=== PATIENT | male | born 1940 | race Caucasian/White ===

== ENCOUNTER 2017-11-20 14:17 | Emergency (ER) | payer MEDICARE, OTHER ==
[2017-11-20 14:34] VITALS: BP 152/65
--- NOTE | 2017-11-20 16:34 | EDM.PDOC ---
ED HPI GENERAL MEDICAL PROBLEM - General Chief Complaint: Lower Extremity Injury/Pain Stated Complaint: LT LEG TURNING COLOR AFTER SURGERY/HURTS Time Seen by Provider: 11/20/17 14:57 Source of Information: Reports: Patient History Limitations: Reports: No Limitations - History of Present Illness INITIAL COMMENTS - FREE TEXT/NARRATIVE: Patient presents today with concerns of swelling and discoloration in his left leg. Patient had a fem pop bypass graft done a month ago with Dr. Capone. Has had issues with wound healing but was recovering well. He had significant left leg pain prior to surgery to the point he was in a wheelchair. He admits that pain is gone, now only has an ache in his leg. He noted discoloration in his leg that would actually worsen when is sitting with his knee flexed. relates that the swelling only was noted today. No shortness of breath or chest pain. Onset: Today, Sudden Duration: Hour(s): Location: Reports: Lower Extremity, Left Quality: Reports: Ache Severity: Mild Improves with: Reports: None Worsens with: Reports: None Context: Reports: Other (recent surgery) Left Leg Pain Score (Numeric/FACES): 3 - Related Data Allergies Allergy/AdvReac Type Severity Reaction Status Date / Time No Known Allergies Allergy Verified 11/20/17 14:34 Home Meds: Home Meds Carvedilol [Coreg] 6.25 mg PO BID 06/26/14 [History] Clopidogrel [Plavix] 75 mg PO DAILY 06/26/14 [History] Sertraline [Zoloft] 50 mg PO DAILY 06/26/14 [History] Simvastatin [Zocor] 40 mg PO DAILY 06/26/14 [History] amLODIPine [Norvasc] 10 mg PO DAILY 06/26/14 [History] metFORMIN [Glucophage] 500 mg PO BID 06/26/14 [History] Apixaban [Eliquis] 5 mg PO BID #70 tablet 11/20/17 [Rx] Ascorbic Acid [Vitamin C] 1,000 mg PO DAILY 11/20/17 [History] Aspirin [Halfprin] 81 mg PO DAILY 11/20/17 [History] Cholecalciferol (Vitamin D3) [Vitamin D3] 6,000 unit PO DAILY 11/20/17 [History] Flaxseed Oil/[place] 3,6,9 [Sv Flaxseed Oil 1,300 mg Sftgl] 1 each PO DAILY [History] Gabapentin [Neurontin] 100 mg PO BID 11/20/17 [History] Multivitamin [Multivitamins] 1 each PO DAILY 11/20/17 [History] Nitroglycerin 0.4 mg SL ASDIRECTED PRN 11/20/17 [History] [place]-3/DHA/Epa/Fish Oil [[place]-3 Fish Oil 1,000 MG Sfgl] 1,000 mg PO BID [History] Past Medical History Cardiovascular History: Reports: Angina, High Cholesterol, Hypertension, CT, Pacemaker, Stents Musculoskeletal History: Reports: Back Pain, Chronic Psychiatric History: Reports: Depression Endocrine/Metabolic History: Reports: Diabetes, Type II - Past Surgical History Cardiovascular Surgical History: Reports: Carotid Stents, Pacer, Other (See Below) Other Cardiovascular Surgeries/Procedures: bypass surgery left leg on 10-14-17 Endocrine Surgical History: Reports: None Musculoskeletal Surgical History: Reports: Hip Replacement, Other (See Below) Other Musculoskeletal Surgeries/Procedures:: laminectomy Social & Family History - Tobacco Use Smoking Status *Q: Current Every Day Smoker Years of Tobacco use: 60 Packs/Tins Daily: 1 Review of Systems - Review of Systems Review Of Systems: See Below Constitutional: Denies: Fever, Weakness Eyes: Reports: No Symptoms Ears: Reports: No Symptoms Nose: Reports: No Symptoms Mouth/Throat: Reports: No Symptoms Respiratory: Denies: Shortness of Breath, Cough Cardiovascular: Denies: Chest Pain, Palpitations, Syncope GI/Abdominal: Reports: No Symptoms Musculoskeletal: Reports: Leg Pain Skin: Reports: Other (incision healing in groin) Neurological: Reports: No Symptoms ED EXAM, GENERAL - Physical Exam Exam: See Below Exam Limited By: No Limitations General Appearance: Alert, WD/WN, No Apparent Distress Neck: Normal Inspection Respiratory/Chest: No Respiratory Distress, Lungs Clear, Normal Breath Sounds Cardiovascular: Regular Rate, Rhythm Extremities: Other (LLE is noted to have 2+ edema, slightly red in appearance. Pedal pulse 2+ to LLE, 3+ RLE. ) Neurological: Alert, Oriented Skin Exam: Warm, Dry Course - Vital Signs Last Recorded V/S: Last Vital Signs Temp 97.4 F 11/20/17 14:31 Pulse 74 11/20/17 14:31 Resp 16 11/20/17 14:31 BP 152/65 H 11/20/17 14:31 Pulse Ox 97 11/20/17 14:31 - Orders/Labs/Meds Orders: Active Orders 24 hr Category Date Time Status VL Duplex Lwr Ext Veins Ltd Lt [US] Stat Exams 11/20/17 15:28 Taken Labs: Laboratory Tests 11/20/17 Range/Units 14:48 D-Dimer, Quantitative 10.33 H (0.00-0.50) - Re-Assessments/Exams Free Text/Narrative Re-Assessment/Exam: 11/20/17 Patient d-dimer greater than 10. Will obtain ultrasound of leg 1630 Ultrasound of leg is positive. Contacted Dr. Capone, his surgeon at [facility] , and discussed status with him. Advised to start Eliquis and that could coincide this with his Plavix. He is scheduled for recheck appointment in [address] Capone. Patient and informed and verbalizes understanding. Departure - Departure Time of Disposition: 16:37 Disposition: Home, Self-Care 01 Condition: Fair Clinical Impression: DVT (deep venous thrombosis) - Discharge Information *PRESCRIPTION DRUG MONITORING PROGRAM REVIEWED*: No *COPY OF PRESCRIPTION DRUG MONITORING REPORT IN PATIENT KALIA: No Prescriptions: Apixaban [Eliquis] 5 mg PO BID #70 tablet Referrals: Zain Maradiaga MD [Primary Care Provider] - Forms: ED Department Discharge Additional Instructions: 1. Rest 2. Elevate leg 3. Hiro hose to leg 4. Start Eliquis today 5. See Dr. Capone in 3 weeks as previously scheduled. - My Orders Last 24 Hours: My Active Orders 11/20/17 15:28 VL Duplex Lwr Ext Veins Ltd Lt [US] Stat - Assessment/Plan Last 24 Hours: My Active Orders 11/20/17 15:28 VL Duplex Lwr Ext Veins Ltd Lt [US] Stat
== END 2017-11-20 16:45 | disposition home or self-care (01) ==
LOC: CC.ED 14:17
DX: I82.402 Acute embolism and thrombosis of unspecified deep veins of left lower extremity (principal); E78.00 Pure hypercholesterolemia, unspecified; I10 Essential (primary) hypertension; F17.210 Nicotine dependence, cigarettes, uncomplicated; I25.2 Old myocardial infarction; F32.9 Major depressive disorder, single episode, unspecified; Z79.01 Long term (current) use of anticoagulants; Z79.899 Other long term (current) drug therapy; Z95.0 Presence of cardiac pacemaker; Z79.82 Long term (current) use of aspirin
CPT/HCPCS: 36415; 85379; 93971-LT; 99283

== ENCOUNTER 2018-06-20 01:24 | Observation (INO) | payer MEDICARE, OTHER ==
[2018-06-20] MEDS ORDERED: Nitroglycerin 0.4 MG Tab.SL SL PRN (01:54)
[2018-06-20] MEDS ORDERED: Aspirin 81 MG Tab.Chew PO ONE (01:54)
[2018-06-20 02:00] LABS: CHLORIDE,CL 106 mEq/L (98-106); SODIUM,NA 142 mEq/L (136-145)
--- NOTE | 2018-06-20 02:00 | EDM.PDOC ---
ED HPI GENERAL MEDICAL PROBLEM - General Chief Complaint: General Stated Complaint: chest pain Time Seen by Provider: 06/20/18 01:48 Source of Information: Reports: Patient - History of Present Illness INITIAL COMMENTS - FREE TEXT/NARRATIVE: patient is a 78 year old male who presents with left sided chest pain that he states he has chest pain all the time but this evening it was worse as he was up walking around the house. He states it is 6/10 and is heavy non radiating. Onset: Gradual Duration: Day(s):, Getting Worse Location: Reports: Chest Quality: Reports: Pressure Severity: Moderate Improves with: Reports: Movement Worsens with: Reports: Rest Associated Symptoms: Reports: No Other Symptoms Left Middle Chest Pain Score (Numeric/FACES): 4 - Related Data Allergies Allergy/AdvReac Type Severity Reaction Status Date / Time No Known Allergies Allergy Verified 06/20/18 02:44 Home Meds: Home Meds Carvedilol [Coreg] 6.25 mg PO BID 06/26/14 [History] Clopidogrel [Plavix] 75 mg PO DAILY 06/26/14 [History] Sertraline [Zoloft] 50 mg PO DAILY 06/26/14 [History] Simvastatin [Zocor] 20 mg PO DAILY 06/26/14 [History] amLODIPine [Norvasc] 10 mg PO DAILY 06/26/14 [History] metFORMIN [Glucophage] 500 mg PO BID 06/26/14 [History] Cholecalciferol (Vitamin D3) [Vitamin D3] 5,000 unit PO DAILY 11/20/17 [History] Flaxseed Oil/[place] 3,6,9 [Sv Flaxseed Oil 1,300 mg Sftgl] 1 each PO DAILY [History] Gabapentin [Neurontin] 100 mg PO TID 11/20/17 [History] Multivitamin [Multivitamins] 1 each PO DAILY 11/20/17 [History] Nitroglycerin 0.4 mg SL ASDIRECTED PRN 11/20/17 [History] [place]-3/DHA/Epa/Fish Oil [[place]-3 Fish Oil 1,000 MG Sfgl] 1,000 mg PO BID [History] Warfarin [Coumadin] 5 mg PO DAILY 06/20/18 [History] Past Medical History Cardiovascular History: Reports: Angina, High Cholesterol, Hypertension, [place], Pacemaker, Stents Musculoskeletal History: Reports: Back Pain, Chronic Psychiatric History: Reports: Depression Endocrine/Metabolic History: Reports: Diabetes, Type II - Past Surgical History Cardiovascular Surgical History: Reports: Carotid Stents, Pacer, Other (See Below) Other Cardiovascular Surgeries/Procedures: bypass surgery left leg on 10-14-17 Endocrine Surgical History: Reports: None Musculoskeletal Surgical History: Reports: Hip Replacement, Other (See Below) Other Musculoskeletal Surgeries/Procedures:: laminectomy - History Comment History Comment: reviewed and agree with nursing assessment. Social & Family History - Living Situation & Occupation Living situation: Reports: (reviewed and agree with SH&FH), with Family ED ROS GENERAL - Review of Systems Review Of Systems: See Below Constitutional: Reports: No Symptoms HEENT: Reports: Eye Discharge Respiratory: Reports: No Symptoms Cardiovascular: Reports: Chest Pain. Denies: Dyspnea on Exertion, Edema, Lightheadedness, Orthopnea Endocrine: Reports: No Symptoms GI/Abdominal: Reports: No Symptoms Skin: Reports: No Symptoms Neurological: Reports: No Symptoms Psychiatric: Reports: No Symptoms Hematologic/Lymphatic: Reports: No Symptoms Immunologic: Reports: No Symptoms ED EXAM, GENERAL - Physical Exam Exam: See Below Exam Limited By: No Limitations General Appearance: Alert, WD/WN, No Apparent Distress Eye Exam: Bilateral Eye: PERRL Ears: Normal External Exam, Hearing Grossly Normal Ear Exam: Bilateral Ear: Auricle Normal, Canal Normal, TM normal Nose: Normal Inspection, Normal Mucosa, No Blood Throat/Mouth: Normal Inspection, Normal Teeth, Normal Gums, Normal Oropharynx, Normal Voice, No Airway Compromise Head: Atraumatic, Normocephalic Neck: Normal Inspection, Supple, Non-Tender Respiratory/Chest: No Respiratory Distress, Lungs Clear, Normal Breath Sounds, No Accessory Muscle Use, Chest Non-Tender Cardiovascular: Normal Peripheral Pulses, Regular Rate, Rhythm, No Edema, No Gallop, No JVD, No Murmur, No Rub, JVD GI/Abdominal: Normal Bowel Sounds, Soft, Non-Tender Extremities: Normal Inspection, Normal Range of Motion, Non-Tender, No Pedal Edema, Normal Capillary Refill Neurological: Alert, Oriented, CN II-XII Intact, Normal Cognition, Normal Gait Psychiatric: Normal Affect, Normal Mood Skin Exam: Warm, Dry, Intact, Normal Color, No Rash EKG INTERPRETATION EKG Date: 06/20/18 Time: 02:00 Rhythm: A-Fib [place]: Normal P-Wave: Absent QRS: Normal ST-T: Normal QT: Normal Comparison: NA - No Prior EKG (patient states he was started on Warfarin one week ago when he had a pacemaker che over the phone that showed A . Fib.) Course - Vital Signs Last Recorded V/S: Last Vital Signs Temp 97.0 F 06/20/18 08:00 Pulse 67 06/20/18 08:00 Resp 16 06/20/18 08:00 BP 126/55 L 06/20/18 08:00 Pulse Ox 94 L 06/20/18 08:00 - Orders/Labs/Meds Orders: Active Orders 24 hr Category Date Time Status CXR [Chest 2V] [CR] Stat Exams 06/20/18 01:33 Taken Chest PE [Ang Chest] [CT] Stat Exams 06/20/18 02:37 Taken Medication Orders Acetaminophen (Tylenol) 650 mg PO Q4H PRN PRN Reason: Pain (Mild 1-3)/fever Hydrocodone Bitart/Acetaminophen ([place] 325-5 Mg) 1 tab PO Q4H PRN PRN Reason: Pain (moderate 4-6) Nicotine (Habitrol) 14 mg TRDERM DAILY [facility] Last Admin: 06/20/18 07:36 Dose: 14 mg Non-Formulary Medication (Amlodipine [Norvasc]) 10 mg PO DAILY [facility] Non-Formulary Medication (Carvedilol [Coreg]) 6.25 mg PO BID [facility] Non-Formulary Medication (Cholecalciferol (Vitamin D3)) 5,000 unit PO DAILY [facility] Non-Formulary Medication (Flaxseed Oil/[place] 3,6,9 [Sv Flaxseed Oil 1,300 Mg Sftgl]) 1 each PO DAILY [facility] Non-Formulary Medication (Gabapentin [Neurontin]) 100 mg PO TID [facility] Non-Formulary Medication (Metformin [Glucophage]) 500 mg PO BID [facility] Non-Formulary Medication (Sertraline [Zoloft]) 50 mg PO DAILY [facility] Non-Formulary Medication (Simvastatin [Zocor]) 20 mg PO DAILY [facility] Non-Formulary Medication (Warfarin [Coumadin]) 5 mg PO DAILY [facility] Warfarin Dosing Per (Pharmacy) 0 each PO DAILY [facility] Last Admin: 06/20/18 09:02 Dose: Ondansetron HCl (Zofran Odt) 4 mg PO Q4H PRN PRN Reason: nausea, able to take PO Sodium Chloride (Saline Flush) 10 ml FLUSH ASDIRECTED PRN PRN Reason: Keep Vein Open Warfarin Sodium (Coumadin) 5 mg PO DAILY@1200 [facility] Labs: Laboratory Tests 06/20/18 06/20/18 06/20/18 Range/Units 01:35 01:35 01:35 WBC 7.3 (5.0-10.0) 10^3/uL RBC 4.36 L (4.50-6.00) 10^6/uL Hgb 15.2 (14.0-18.0) g/dL Hct 43.1 (40.0-54.0) % MCV 98.9 H (82.0-94.0) fL MCH 34.9 H (27.0-32.0) pg MCHC 35.3 (33.0-38.0) g/dL RDW Coeff of [place] 12.3 (11.0-15.0) % Plt Count 120 L (150-400) 10^3/uL Neut % (Auto) 55.4 (35-85) % Lymph % (Auto) 30.3 (10-55) % [place] % (Auto) 10.1 (0-16) % Eos % (Auto) 3.7 (0-5) % Baso % (Auto) 0.5 (0-3) % Neut # (Auto) 4.05 (1.80-7.00) 10^3/uL Lymph # (Auto) 2.22 (1.00-4.80) 10^3/uL [place] # (Auto) 0.74 (0.00-0.80) 10^3/uL Eos # (Auto) 0.27 (0.00-0.45) 10^3/uL Baso # (Auto) 0.04 10^3/uL PT 11.4 (9.7-12.3) SEC INR 1.10 (0.92-1.18) APTT 32.2 (23.2-32.3) SEC D-Dimer, Quantitative (0.00-0.50) Sodium 142 (136-145) mEq/L Potassium 3.7 (3.5-5.0) mEq/L Chloride 106 (98-106) mEq/L Carbon Dioxide 21 (21-32) mmol/L BUN 13 (7-18) mg/dL Creatinine 1.0 (0.7-1.3) mg/dL Est Cr Clr Drug Dosing TNP Estimated GFR (MDRD) > 60 (>=60) mL/min Glucose 131 H D (75-99) mg/dL Calcium 9.1 (8.4-10.1) mg/dL Total Bilirubin 0.2 (0.0-1.0) mg/dL AST 15 (15-37) U/L ALT 26 (12-78) U/L Alkaline Phosphatase 84 (46-116) U/L Lactate Dehydrogenase 137 (100-190) U/L Creatine Kinase 66 (35-232) U/L Troponin I < 0.017 (0.00-0.06) ng/mL Total Protein 6.8 (6.4-8.2) g/dL Albumin 3.4 (3.4-5.0) g/dL 06/20/18 Range/Units 01:45 WBC (5.0-10.0) 10^3/uL RBC (4.50-6.00) 10^6/uL Hgb (14.0-18.0) g/dL Hct (40.0-54.0) % MCV (82.0-94.0) fL MCH (27.0-32.0) pg MCHC (33.0-38.0) g/dL RDW Coeff of [place] (11.0-15.0) % Plt Count (150-400) 10^3/uL Neut % (Auto) (35-85) % Lymph % (Auto) (10-55) % [place] % (Auto) (0-16) % Eos % (Auto) (0-5) % Baso % (Auto) (0-3) % Neut # (Auto) (1.80-7.00) 10^3/uL Lymph # (Auto) (1.00-4.80) 10^3/uL [place] # (Auto) (0.00-0.80) 10^3/uL Eos # (Auto) (0.00-0.45) 10^3/uL Baso # (Auto) 10^3/uL PT (9.7-12.3) SEC INR (0.92-1.18) APTT (23.2-32.3) SEC D-Dimer, Quantitative 1.33 H (0.00-0.50) Sodium (136-145) mEq/L Potassium (3.5-5.0) mEq/L Chloride (98-106) mEq/L Carbon Dioxide (21-32) mmol/L BUN (7-18) mg/dL Creatinine (0.7-1.3) mg/dL Est Cr Clr Drug Dosing Estimated GFR (MDRD) (>=60) mL/min Glucose (75-99) mg/dL Calcium (8.4-10.1) mg/dL Total Bilirubin (0.0-1.0) mg/dL AST (15-37) U/L ALT (12-78) U/L Alkaline Phosphatase (46-116) U/L Lactate Dehydrogenase (100-190) U/L Creatine Kinase (35-232) U/L Troponin I (0.00-0.06) ng/mL Total Protein (6.4-8.2) g/dL Albumin (3.4-5.0) g/dL Meds: Medications Generic Name Dose Route Start Last Admin Trade Name Freq PRN Reason Stop Dose Admin Acetaminophen 650 mg 06/20/18 03:45 Tylenol PO Q4H PRN Pain (Mild 1-3)/fever Hydrocodone Bitart/Acetaminophen 1 tab 06/20/18 03:45 [place] 325-5 Mg PO Q4H PRN Pain (moderate 4-6) Nicotine 14 mg 06/20/18 08:00 06/20/18 07:36 Habitrol TRDERM 14 mg DAILY [facility] Administration Non-Formulary Medication 10 mg 06/20/18 08:00 Amlodipine [Norvasc] PO DAILY [facility] Non-Formulary Medication 6.25 mg 06/20/18 08:00 Carvedilol [Coreg] PO BID [facility] Non-Formulary Medication 5,000 unit 06/20/18 08:00 Cholecalciferol (Vitamin D3) PO DAILY [facility] Non-Formulary Medication 1 each 06/20/18 08:00 Flaxseed Oil/[place] 3,6,9 [Sv Flaxseed Oil 1,300 Mg Sftgl] PO DAILY [facility] Non-Formulary Medication 100 mg 06/20/18 08:00 Gabapentin [Neurontin] PO TID [facility] Non-Formulary Medication 500 mg 06/20/18 08:00 Metformin [Glucophage] PO BID [facility] Non-Formulary Medication 50 mg 06/20/18 08:00 Sertraline [Zoloft] PO DAILY [facility] Non-Formulary Medication 20 mg 06/20/18 08:00 Simvastatin [Zocor] PO DAILY [facility] Non-Formulary Medication 5 mg 06/20/18 08:00 Warfarin [Coumadin] PO DAILY [facility] Warfarin Dosing Per 0 each 06/20/18 08:00 06/20/18 09:02 Pharmacy PO Not Given DAILY [facility] Ondansetron HCl 4 mg 06/20/18 03:45 Zofran Odt PO Q4H PRN nausea, able to take PO Sodium Chloride 10 ml 06/20/18 03:45 Saline Flush FLUSH ASDIRECTED PRN Keep Vein Open Warfarin Sodium 5 mg 06/20/18 12:00 Coumadin PO DAILY@1200 [facility] Discontinued Medications Generic Name Dose Route Start Last Admin Trade Name Freq PRN Reason Stop Dose Admin Aspirin 324 mg 06/20/18 01:54 06/20/18 02:00 Aspirin PO 06/20/18 01:55 324 mg ONETIME ONE Administration Enoxaparin Sodium 100 mg 06/20/18 02:30 06/20/18 02:54 Lovenox SUBCUT 100 mg Q12H [facility] Administration Iopamidol 100 ml 06/20/18 02:48 06/20/18 03:03 Isovue-370 (76%) IVPUSH 06/20/18 02:49 100 ml ONETIME ONE Administration Ketorolac Tromethamine 30 mg 06/20/18 02:07 06/20/18 02:56 Toradol IVPUSH 06/20/18 02:08 30 mg ONETIME ONE Administration Ketorolac Tromethamine Confirm 06/20/18 02:17 06/20/18 02:56 Toradol Administered 06/20/18 02:18 Not Given Dose 30 mg .ROUTE .STK-MED ONE Nitroglycerin 0.4 mg 06/20/18 01:54 06/20/18 02:54 Nitrostat SL 0.4 mg Q5M PRN Administration Chest Pain Warfarin Sodium 5 mg 06/20/18 08:00 Coumadin PO DAILY [facility] - Radiology Interpretation Free Text/Narrative:: CXR read as negative per [facility] radiologist reviewed by myself. - Re-Assessments/Exams Free Text/Narrative Re-Assessment/Exam: 06/20/18 02:21 Patient states SL nitro did not help only burned under his tongue.. His BP did drop significantly so only one was given. Free Text/Narrative Re-Assessment/Exam: 06/20/18 02:38 D- dimer was elevated and subsequent CT PE protocol was performed. 06/20/18 03:09 Patient reports mild headache after moving around getting the CT done. but reports chest pressure almost gone 04/1506/20/18 03:36 Patient agreed on admission for Chest pain r/o CT PE protocol still pending read at this point. CT was read negative and patient will be kept overnight 06/20/18 10:42 Repeat troponin negative and chest pain completely resolved. and patient requesting to go home. Departure - Departure Time of Disposition: 04:00 Disposition: Admitted As Inpatient 68 Condition: Good Clinical Impression: Chest pain Qualifiers: Chest pain type: unspecified Qualified Code(s): R07.9 - Chest pain, unspecified - Discharge Information - My Orders Last 24 Hours: My Active Orders 06/20/18 01:33 CXR [Chest 2V] [CR] Stat 06/20/18 02:37 Chest PE [Ang Chest] [CT] Stat - Assessment/Plan Last 24 Hours: My Active Orders 06/20/18 01:33 CXR [Chest 2V] [CR] Stat 06/20/18 02:37 Chest PE [Ang Chest] [CT] Stat Assessment:: Chest Pain Plan: 23 hour telemetry admission for Chest pain rule out.
[2018-06-20] MEDS ORDERED: Ketorolac 30 MG/ML SDV IVPUSH ONE (02:07)
[2018-06-20] MEDS ORDERED: Ketorolac 30 MG/ML SDV ONE (02:17)
[2018-06-20] MEDS ORDERED: Enoxaparin 100 MG/1 ML Syringe SUBCUT SCH (02:30)
[2018-06-20] MEDS ORDERED: Iopamidol 755 Mg/ML 100 ML Bottle IVPUSH ONE (02:48)
[2018-06-20] MEDS ORDERED: Sodium Chloride 0.9% 10 ML Syringe FLUSH PRN (03:45)
[2018-06-20] MEDS ORDERED: Acetaminophen/HYDROcodone 325-5 MG Tab PO PRN (03:45)
[2018-06-20] MEDS ORDERED: Ondansetron 4 MG Tab.DIS PO PRN (03:45)
[2018-06-20] MEDS ORDERED: Acetaminophen 325 MG Tab PO PRN (03:45)
[2018-06-20] MEDS ORDERED: OMEGA PO SCH (08:00)
[2018-06-20] MEDS ORDERED: Nicotine 14 MG/24 Hr Patch TRDERM SCH (08:00)
[2018-06-20] MEDS ORDERED: [UNRECOGNIZED DRUG - OTHER] PO SCH (08:00)
[2018-06-20] MEDS ORDERED: [UNRECOGNIZED DRUG - OTHER] PO SCH (08:00)
[2018-06-20] MEDS ORDERED: Non-Formulary Medication 1 Each (Sertraline [Zoloft] 50 MG) PO SCH (08:00)
[2018-06-20] MEDS ORDERED: Warfarin 5 MG Tab PO SCH ×2 (08:00→12:00)
[2018-06-20] MEDS ORDERED: Non-Formulary Medication 1 Each (Amlodipine [Norvasc] 10 MG) PO SCH (08:00)
[2018-06-20] MEDS ORDERED: FLAXSEED OIL PO SCH (08:00)
[2018-06-20] MEDS ORDERED: CARVEDILOL 6.25 MG PO SCH (08:00)
[2018-06-20] MEDS ORDERED: Non-Formulary Medication 1 Each (Simvastatin [Zocor] 20 MG) PO SCH (08:00)
[2018-06-20] MEDS ORDERED: Non-Formulary Medication 1 Each (Gabapentin [Neurontin] 100 MG) PO SCH (08:00)
[2018-06-20] MEDS ORDERED: Non-Formulary Medication 1 Each (Metformin [Glucophage] 500 MG) PO SCH (08:00)
[2018-06-20] MEDS ORDERED: Non-Formulary Medication 1 Each (Warfarin [Coumadin] 5 MG) PO SCH (08:00)
[2018-06-20 09:49] VITALS: BP 126/55
--- NOTE | 2018-06-20 11:01 | PCM.DCSUM1 ---
Discharge Summary - Hospital Course Free Text/Narrative:: Patient feels much better and troponins negative Requesting to go home. Brief History: Came in early this am with left sided chest pressure. no nausea/ vomiting. 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 Diagnosis: Stroke: No Modified [place] Scale: No Symptoms at All Modified [place] Scale Score: 0 - Discharge Data Discharge Date: 06/20/18 Discharge Disposition: Home, Self-Care 01 Condition: Good - Discharge Diagnosis/Problem(s) (1) Chest pain SNOMED Code(s): 68709920 ICD Code: R07.9 - CHEST PAIN, UNSPECIFIED Status: Acute Current Visit: Yes Qualifiers: Chest pain type: unspecified Qualified Code(s): R07.9 - Chest pain, unspecified - Patient Summary/Data Recommended Follow-up Testing/Procedures: Repeat INR on - Patient Instructions Diet: Heart Healthy Diet Activity: As Tolerated Showering/Bathing: August Shower - Discharge Plan *PRESCRIPTION DRUG MONITORING PROGRAM REVIEWED*: No *COPY OF PRESCRIPTION DRUG MONITORING REPORT IN PATIENT KALIA: No Home Medications: Home Meds Carvedilol [Coreg] 6.25 mg PO BID 06/26/14 [History] Clopidogrel [Plavix] 75 mg PO DAILY 06/26/14 [History] Sertraline [Zoloft] 50 mg PO DAILY 06/26/14 [History] Simvastatin [Zocor] 20 mg PO DAILY 06/26/14 [History] amLODIPine [Norvasc] 10 mg PO DAILY 06/26/14 [History] metFORMIN [Glucophage] 500 mg PO BID 06/26/14 [History] Cholecalciferol (Vitamin D3) [Vitamin D3] 5,000 unit PO DAILY 11/20/17 [History] Flaxseed Oil/[place] 3,6,9 [Sv Flaxseed Oil 1,300 mg Sftgl] 1 each PO DAILY [History] Gabapentin [Neurontin] 100 mg PO TID 11/20/17 [History] Multivitamin [Multivitamins] 1 each PO DAILY 11/20/17 [History] Nitroglycerin 0.4 mg SL ASDIRECTED PRN 11/20/17 [History] [place]-3/DHA/Epa/Fish Oil [[place]-3 Fish Oil 1,000 MG Sfgl] 1,000 mg PO BID [History] Warfarin [Coumadin] 5 mg PO DAILY 06/20/18 [History] Forms: ED Department Discharge Referrals: Zain Maradiaga MD [Primary Care Provider] - - Discharge Summary/Plan Comment DC Time >30 min.: No Discharge Summary/Plan Comment: Patient to increase coumadin to10mg on Thursday - have repeat INR on . - General Info Date of Service: 06/20/18 Admission Dx/Problem (Free Text: chest pain left sided pressure. Functional Status: Reports: Pain Controlled Numeric/FACES Score: 0 - Review of Systems General: Reports: No Symptoms HEENT: Reports: No Symptoms Pulmonary: Reports: No Symptoms Cardiovascular: Reports: No Symptoms Gastrointestinal: Reports: No Symptoms Genitourinary: Reports: No Symptoms Musculoskeletal: Reports: No Symptoms Skin: Reports: No Symptoms Neurological: Reports: No Symptoms Psychiatric: Reports: No Symptoms - Patient Data Vitals - Most Recent: Last Vital Signs Temp 97.0 F 06/20/18 08:00 Pulse 67 06/20/18 08:00 Resp 16 06/20/18 08:00 BP 126/55 L 06/20/18 08:00 Pulse Ox 94 L 06/20/18 08:00 Weight - Most Recent: 239 lb 14.4 oz Lab Results - Last 24 hrs: Laboratory Results - last 24 hr 06/20/18 06/20/18 06/20/18 Range/Units 01:35 01:35 01:35 WBC 7.3 (5.0-10.0) 10^3/uL RBC 4.36 L (4.50-6.00) 10^6/uL Hgb 15.2 (14.0-18.0) g/dL Hct 43.1 (40.0-54.0) % MCV 98.9 H (82.0-94.0) fL MCH 34.9 H (27.0-32.0) pg MCHC 35.3 (33.0-38.0) g/dL RDW Coeff of [place] 12.3 (11.0-15.0) % Plt Count 120 L (150-400) 10^3/uL Neut % (Auto) 55.4 (35-85) % Lymph % (Auto) 30.3 (10-55) % [place] % (Auto) 10.1 (0-16) % Eos % (Auto) 3.7 (0-5) % Baso % (Auto) 0.5 (0-3) % Neut # (Auto) 4.05 (1.80-7.00) 10^3/uL Lymph # (Auto) 2.22 (1.00-4.80) 10^3/uL [place] # (Auto) 0.74 (0.00-0.80) 10^3/uL Eos # (Auto) 0.27 (0.00-0.45) 10^3/uL Baso # (Auto) 0.04 10^3/uL PT 11.4 (9.7-12.3) SEC INR 1.10 (0.92-1.18) APTT 32.2 (23.2-32.3) SEC D-Dimer, Quantitative (0.00-0.50) Sodium 142 (136-145) mEq/L Potassium 3.7 (3.5-5.0) mEq/L Chloride 106 (98-106) mEq/L Carbon Dioxide 21 (21-32) mmol/L BUN 13 (7-18) mg/dL Creatinine 1.0 (0.7-1.3) mg/dL Est Cr Clr Drug Dosing TNP Estimated GFR (MDRD) > 60 (>=60) mL/min Glucose 131 H D (75-99) mg/dL POC Glucose (75-105) mg/dl Calcium 9.1 (8.4-10.1) mg/dL Total Bilirubin 0.2 (0.0-1.0) mg/dL AST 15 (15-37) U/L ALT 26 (12-78) U/L Alkaline Phosphatase 84 (46-116) U/L Lactate Dehydrogenase 137 (100-190) U/L Creatine Kinase 66 (35-232) U/L Troponin I < 0.017 (0.00-0.06) ng/mL Total Protein 6.8 (6.4-8.2) g/dL Albumin 3.4 (3.4-5.0) g/dL 06/20/18 06/20/18 06/20/18 Range/Units 01:45 07:00 07:30 WBC (5.0-10.0) 10^3/uL RBC (4.50-6.00) 10^6/uL Hgb (14.0-18.0) g/dL Hct (40.0-54.0) % MCV (82.0-94.0) fL MCH (27.0-32.0) pg MCHC (33.0-38.0) g/dL RDW Coeff of Louis (11.0-15.0) % Plt Count (150-400) 10^3/uL Neut % (Auto) (35-85) % Lymph % (Auto) (10-55) % [place] % (Auto) (0-16) % Eos % (Auto) (0-5) % Baso % (Auto) (0-3) % Neut # (Auto) (1.80-7.00) 10^3/uL Lymph # (Auto) (1.00-4.80) 10^3/uL [place] # (Auto) (0.00-0.80) 10^3/uL Eos # (Auto) (0.00-0.45) 10^3/uL Baso # (Auto) 10^3/uL PT (9.7-12.3) SEC INR (0.92-1.18) APTT (23.2-32.3) SEC D-Dimer, Quantitative 1.33 H (0.00-0.50) Sodium (136-145) mEq/L Potassium (3.5-5.0) mEq/L Chloride (98-106) mEq/L Carbon Dioxide (21-32) mmol/L BUN (7-18) mg/dL Creatinine (0.7-1.3) mg/dL Est Cr Clr Drug Dosing Estimated GFR (MDRD) (>=60) mL/min Glucose (75-99) mg/dL POC Glucose 103 (75-105) mg/dl Calcium (8.4-10.1) mg/dL Total Bilirubin (0.0-1.0) mg/dL AST (15-37) U/L ALT (12-78) U/L Alkaline Phosphatase (46-116) U/L Lactate Dehydrogenase (100-190) U/L Creatine Kinase (35-232) U/L Troponin I < 0.017 (0.00-0.06) ng/mL Total Protein (6.4-8.2) g/dL Albumin (3.4-5.0) g/dL Med Orders - Current: Current Medications Acetaminophen (Tylenol) 650 mg PO Q4H PRN PRN Reason: Pain (Mild 1-3)/fever Hydrocodone Bitart/Acetaminophen ([place] 325-5 Mg) 1 tab PO Q4H PRN PRN Reason: Pain (moderate 4-6) Nicotine (Habitrol) 14 mg TRDERM DAILY [facility] Last Admin: 06/20/18 07:36 Dose: 14 mg Non-Formulary Medication (Amlodipine [Norvasc]) 10 mg PO DAILY [facility] Non-Formulary Medication (Carvedilol [Coreg]) 6.25 mg PO BID [facility] Non-Formulary Medication (Cholecalciferol (Vitamin D3)) 5,000 unit PO DAILY [facility] Non-Formulary Medication (Flaxseed Oil/[place] 3,6,9 [Sv Flaxseed Oil 1,300 Mg Sftgl]) 1 each PO DAILY [facility] Non-Formulary Medication (Gabapentin [Neurontin]) 100 mg PO TID [facility] Non-Formulary Medication (Metformin [Glucophage]) 500 mg PO BID [facility] Non-Formulary Medication (Sertraline [Zoloft]) 50 mg PO DAILY [facility] Non-Formulary Medication (Simvastatin [Zocor]) 20 mg PO DAILY [facility] Non-Formulary Medication (Warfarin [Coumadin]) 5 mg PO DAILY [facility] Warfarin Dosing Per (Pharmacy) 0 each PO DAILY [facility] Last Admin: 06/20/18 09:02 Dose: Not Given Ondansetron HCl (Zofran Odt) 4 mg PO Q4H PRN PRN Reason: nausea, able to take PO Sodium Chloride (Saline Flush) 10 ml FLUSH ASDIRECTED PRN PRN Reason: Keep Vein Open Warfarin Sodium (Coumadin) 5 mg PO DAILY@1200 [facility] Discontinued Medications Aspirin (Aspirin) 324 mg PO ONETIME ONE Stop: 06/20/18 01:55 Last Admin: 06/20/18 02:00 Dose: 324 mg Enoxaparin Sodium (Lovenox) 100 mg SUBCUT Q12H [facility] Last Admin: 06/20/18 02:54 Dose: 100 mg Iopamidol (Isovue-370 (76%)) 100 ml IVPUSH ONETIME ONE Stop: 06/20/18 02:49 Last Admin: 06/20/18 03:03 Dose: 100 ml Ketorolac Tromethamine (Toradol) 30 mg IVPUSH ONETIME ONE Stop: 06/20/18 02:08 Last Admin: 06/20/18 02:56 Dose: 30 mg Ketorolac Tromethamine (Toradol) Confirm Administered Dose 30 mg .ROUTE .STK- MED ONE Stop: 06/20/18 02:18 Last Admin: 06/20/18 02:56 Dose: Not Given Nitroglycerin (Nitrostat) 0.4 mg SL Q5M PRN PRN Reason: Chest Pain Last Admin: 06/20/18 02:54 Dose: 0.4 mg Warfarin Sodium (Coumadin) 5 mg PO DAILY [facility] - Exam General: Reports: Alert, Oriented HEENT: Reports: Pupils Equal, Pupils Reactive Neck: Reports: Supple Lungs: Reports: Clear to Auscultation, Normal Respiratory Effort Cardiovascular: Reports: Regular Rate, Regular Rhythm GI/Abdominal Exam: Normal Bowel Sounds, Soft, Non-Tender Extremities: Normal Inspection, Normal Range of Motion, No Pedal Edema, Normal Capillary Refill Skin: Reports: Warm, Dry, Intact Psy/Mental Status: Reports: Alert, Normal Affect
== END 2018-06-20 10:49 | disposition home or self-care (01) ==
LOC: CC.ED 01:24 → CC.MS 03:45 → CC.ED 03:50
PROVIDERS: ADMIT Nurse Practitioner; ATTEND Family Medicine
DX: R07.9 Chest pain, unspecified (principal); I10 Essential (primary) hypertension; E11.9 Type 2 diabetes mellitus without complications; E78.00 Pure hypercholesterolemia, unspecified; I25.2 Old myocardial infarction; Z95.0 Presence of cardiac pacemaker; Z79.84 Long term (current) use of oral hypoglycemic drugs; Z79.02 Long term (current) use of antithrombotics/antiplatelets; Z79.01 Long term (current) use of anticoagulants; Z79.899 Other long term (current) drug therapy
CPT/HCPCS: 36415; 71046; 71275; 80053; 82550; 82962; 83615; 84484; 85025; 85379; 85610; 85730; 93005; 96372; 96374; 99285-25; A9270-GY; G0378; J1650; J1885; Q9967

== ENCOUNTER 2020-07-09 14:59 | Inpatient (IN) | payer MEDICARE, OTHER ==
--- NOTE | 2020-07-09 15:52 | EDM.PDOC ---
ED HPI GENERAL MEDICAL PROBLEM - General Chief Complaint: Respiratory Problem Stated Complaint: VERY SOB/WEAK Time Seen by Provider: 07/09/20 15:39 Source of Information: Reports: Patient History Limitations: Reports: No Limitations - History of Present Illness INITIAL COMMENTS - FREE TEXT/NARRATIVE: Seth is a 80 yo male with PMH htn, hyperlipidemia, COPD, type 2 DM, CAD who pr esents to the ED with c/o shortness of breath and cough. Reports since mid week last week he has developed a deep cough and increasing shortness of breath. Reports cough is productive of thick sputum. Does have O2 sat monitor at home, as his oxygen was borderline low when he was hospitalized last month for carotid endartectomy. He reports they wanted to send him home on oxygen but he refused. Oxygen sats last evening were down to 87%. He does report chronic dyspnea and cough, but this is much worse. Does have some sinus congestion. Has not had fever or chills. No chest pain, dizziness or edema. reports he was prescribed inhalers for his COPD but he has refused to take them due to cost. Does continue to smoke, but has not smoked the last few days as he has been feeling ill. Onset Date: 07/04/20 Duration: Getting Worse Location: Reports: Chest Associated Symptoms: Reports: Cough, cough w sputum, Loss of Appetite, Malaise, Shortness of Breath. Denies: Chest Pain, Fever/Chills, Nausea/Vomiting, Syncope, Weakness - Related Data Allergies Allergy/AdvReac Type Severity Reaction Status Date / Time No Known Allergies Allergy Verified 07/09/20 15:22 Home Meds: Home Meds Clopidogrel [Plavix] 75 mg PO DAILY 06/26/14 [History] Sertraline [Zoloft] 50 mg PO DAILY 06/26/14 [History] Simvastatin [Zocor] 20 mg PO DAILY 06/26/14 [History] amLODIPine [Norvasc] 10 mg PO DAILY 06/26/14 [History] carvediloL [Coreg] 6.25 mg PO BID 06/26/14 [History] metFORMIN [Glucophage] 500 mg PO DAILY 06/26/14 [History] Cholecalciferol (Vitamin D3) [Vitamin D3] 1,000 unit PO DAILY 11/20/17 [History] Gabapentin [Neurontin] 100 mg PO TID 11/20/17 [History] Multivitamin [Multivitamins] 1 each PO DAILY 11/20/17 [History] Nitroglycerin 0.4 mg SL ASDIRECTED PRN 11/20/17 [History] Warfarin [Coumadin] 10 mg PO MOWEFR 06/20/18 [History] Fish Oil/[place]-3 Fatty Acids [Fish Oil 1,000 MG] 1,000 mg PO DAILY 07/09/20 [History] Flaxseed Oil 1,200 mg PO DAILY 07/09/20 [History] Potassium Chloride [Klor-Con 10] 10 mg PO DAILY 07/09/20 [History] Warfarin [Coumadin] 7.5 mg PO SUTUTHSA 07/09/20 [History] Past Medical History Cardiovascular History: Reports: Angina, High Cholesterol, Hypertension, MA, Pacemaker, Stents Respiratory History: Reports: COPD Musculoskeletal History: Reports: Back Pain, Chronic Psychiatric History: Reports: Depression Endocrine/Metabolic History: Reports: Diabetes, Type II - Infectious Disease History Infectious Disease History: Reports: None - Past Surgical History Cardiovascular Surgical History: Reports: Carotid Stents, Pacer, Other (See Below) Other Cardiovascular Surgeries/Procedures: bypass surgery left leg on 10-14-17; carotid surgery June 2020 Endocrine Surgical History: Reports: None Musculoskeletal Surgical History: Reports: Hip Replacement, Other (See Below) Other Musculoskeletal Surgeries/Procedures:: laminectomy - History Comment History Comment: reviewed and agree with nursing assessment. Social & Family History - Family History Family Medical History: No Pertinent Family History - Tobacco Use Tobacco Use Status *Q: Former Tobacco User Years of Tobacco use: 67 Used Tobacco, but Quit: Yes Month/Year Tobacco Last Used: 5 days - Caffeine Use Caffeine Use: Reports: Coffee, Soda - Recreational Drug Use Recreational Drug Use: No - Living Situation & Occupation Living situation: Reports: (reviewed and agree with SH&FH), with Family ED ROS GENERAL - Review of Systems Review Of Systems: Comprehensive ROS is negative, except as noted in HPI. ED EXAM, GENERAL - Physical Exam Exam: See Below Exam Limited By: No Limitations General Appearance: Alert, WD/WN, No Apparent Distress Eye Exam: Bilateral Eye: EOMI, Normal Fundi, Normal Inspection, PERRL Nose: Normal Mucosa, No Blood, Nasal Drainage Throat/Mouth: Normal Inspection, Normal Lips, Normal Teeth, Normal Gums, Normal Oropharynx, Normal Voice, No Airway Compromise Head: Atraumatic, Normocephalic Neck: Normal Inspection, Supple, Non-Tender, Full Range of Motion Respiratory/Chest: No Respiratory Distress, No Accessory Muscle Use, Chest Non- Tender, Decreased Breath Sounds (bilateral bases), Rhonchi (throughout), Wheezing (throughout, expiratory ), Prolonged Expiration. No: Accessory Muscle Use, Retractions Cardiovascular: Normal Peripheral Pulses, Regular Rate, Rhythm, No Edema, No Gallop, No JVD, No Murmur, No Rub GI/Abdominal: Normal Bowel Sounds, Soft, Non-Tender, No Organomegaly, No Distention, No Abnormal Bruit, No Mass Back Exam: Normal Inspection, Full Range of Motion, NT Extremities: Normal Inspection, Normal Range of Motion, Non-Tender, Normal Capillary Refill, No Pedal Edema Neurological: Alert, Oriented, CN II-XII Intact, Normal Cognition, Normal Gait, Normal Reflexes, No Motor/Sensory Deficits Psychiatric: Normal Affect, Normal Mood Skin Exam: Warm, Dry, Intact, Normal Color, No Rash Lymphatic: No Adenopathy Course - Vital Signs Last Recorded V/S: Last Vital Signs Temp 98.9 F 07/10/20 00:00 Pulse 72 07/10/20 07:52 Resp 20 07/10/20 00:00 BP 156/71 H 07/10/20 07:53 Pulse Ox 91 L 07/10/20 00:00 - Orders/Labs/Meds Orders: Active Orders 24 hr Category Date Time Status Chest 2V [CR] Stat Exams 07/09/20 15:19 Taken Medication Orders Acetaminophen (Acetaminophen 325 Mg Tab) 650 mg PO Q4H PRN PRN Reason: Pain (Mild 1-3)/fever Albuterol/Ipratropium (Albuterol/Ipratropium 3.0-0.5 Mg/3 Ml Neb Soln) 3 ml NEB QID [facility] Last Admin: 07/10/20 11:33 Dose: 3 ml Documented by: Admin: 07/10/20 07:43 Dose: 3 ml Documented by: Admin: 07/09/20 22:08 Dose: 3 ml Documented by: Admin: 07/09/20 18:17 Dose: 3 ml Documented by: LORIN Amlodipine Besylate (Amlodipine 10 Mg Tab) 10 mg PO DAILY [facility] Last Admin: 07/10/20 07:53 Dose: 10 mg Documented by: AHMET Carvedilol (Carvedilol 6.25 Mg Tab) 6.25 mg PO BIDMEALS [facility] Last Admin: 07/10/20 07:52 Dose: 6.25 mg Documented by: Admin: 07/09/20 18:16 Dose: 6.25 mg Documented by: LORIN Clopidogrel Bisulfate (Clopidogrel 75 Mg Tab) 75 mg PO DAILY [facility] Last Admin: 07/10/20 07:52 Dose: 75 mg Documented by: AHMET Dextrose/Water (50% Dextrose In Water 50 Ml Syringe) 50 ml IV ASDIRECTED PRN PRN Reason: Hypoglycemia Gabapentin (Gabapentin 100 Mg Cap) 100 mg PO TID [facility] Last Admin: 07/10/20 07:53 Dose: 100 mg Documented by: Admin: 07/09/20 20:53 Dose: 100 mg Documented by: SHANE Glucagon (Glucagon,Human Recombinant 1 Mg Vial) 1 mg IM ASDIRECTED PRN PRN Reason: Hypoglycemia Levofloxacin/Dextrose 500 mg/ (Premix) 100 mls @ 100 mls/hr IV Q24H [facility] Last Admin: 07/09/20 18:17 Dose: 100 mls/hr Documented by: LORIN Insulin Human Lispro (Insulin Lispro 100 Units/Ml 3 Ml Vial) [facility]; Protocol Last Admin: 07/10/20 07:48 Dose: 2 units Documented by: Admin: 07/09/20 18:17 Dose: Not Given Documented by: LORIN Metformin HCl (Metformin 500 Mg Tab) 500 mg PO PCDINNER [facility] Last Admin: 07/09/20 18:16 Dose: 500 mg Documented by: LORIN Methylprednisolone Sodium Succinate (Methylprednisolone Sodium Succinate 125 Mg/2 Ml Sdv) 62.5 mg IVPUSH Q12H [facility] Last Admin: 07/10/20 07:46 Dose: 62.5 mg Documented by: Admin: 07/09/20 20:51 Dose: 62.5 mg Documented by: SHANE Multivitamins/Minerals/Vitamin C (Multivitamin Tab) 1 tab PO DAILY [facility] Last Admin: 07/10/20 07:53 Dose: 1 tab Documented by: AHMET Nicotine (Nicotine 14 Mg/24 Hr Patch) 14 mg TRDERM DAILY [facility] Last Admin: 07/10/20 10:07 Dose: 14 mg Documented by: AHMET Nitroglycerin (Nitroglycerin 0.4 Mg Tab.Sl) 0.4 mg SL ASDIRECTED PRN PRN Reason: Chest Pain [place]-3/Dha/Epa/Fish Oil [[place]-3 Fish Oil 1,000 Mg Sfgl] * *Pt Own 0 mg PO BIDMEALS [facility] Potassium Chloride (Potassium Chloride 10 Meq Tab.Er) 10 meq PO DAILY [facility] Last Admin: 07/10/20 07:52 Dose: 10 meq Documented by: AHMET Sertraline HCl (Sertraline 100 Mg Tab) 50 mg PO DAILY [facility] Last Admin: 07/10/20 07:53 Dose: 50 mg Documented by: AHMET Simvastatin (Simvastatin 20 Mg Tab) 20 mg PO BEDTIME [facility] Last Admin: 07/09/20 20:52 Dose: 20 mg Documented by: SHANE Sodium Chloride (Sodium Chloride 0.9% 10 Ml Syringe) 10 ml FLUSH ASDIRECTED PRN PRN Reason: Keep Vein Open Temazepam (Temazepam 15 Mg Cap) 15 mg PO BEDTIME PRN PRN Reason: Sleep Tiotropium [place] (Tiotropium Inhaler 18 Mcg Inhalation Powder Cap Kit Of 5) 18 mcg INH 1600 [facility] Labs: Laboratory Tests 07/09/20 07/09/20 07/09/20 Range/Units 15:38 15:38 15:38 WBC 6.5 (5.0-10.0) 10^3/uL RBC 4.07 L (4.50-6.00) 10^6/uL Hgb 13.5 L (14.0-18.0) g/dL Hct 40.2 (40.0-54.0) % MCV 98.8 H (82.0-94.0) fL MCH 33.2 H (27.0-32.0) pg MCHC 33.6 (33.0-38.0) g/dL RDW Coeff of Louis 13.7 (11.0-15.0) % Plt Count 112 L (150-400) 10^3/uL Neut % (Auto) 65.1 (35-85) % Lymph % (Auto) 18.2 (10-55) % Marshall % (Auto) 13.3 (0-16) % Eos % (Auto) 2.9 (0-5) % Baso % (Auto) 0.5 (0-3) % Neut # (Auto) 4.21 (1.80-7.00) 10^3/uL Lymph # (Auto) 1.18 (1.00-4.80) 10^3/uL Marshall # (Auto) 0.86 H (0.00-0.80) 10^3/uL Eos # (Auto) 0.19 (0.00-0.45) 10^3/uL Baso # (Auto) 0.03 10^3/uL PT 37.0 H (9.7-12.3) SEC INR 3.69 H (0.92-1.18) APTT 42.5 H (23.2-32.3) SEC D-Dimer, Quantitative 0.69 H (0.00-0.50) Sodium 142 (136-145) mEq/L Potassium 3.9 (3.5-5.0) mEq/L Chloride 105 (98-106) mEq/L Carbon Dioxide 28 (21-32) mmol/L BUN 15 (7-18) mg/dL Creatinine 1.0 (0.7-1.3) mg/dL Est Cr Clr Drug Dosing 62.86 mL/min Estimated GFR (MDRD) > 60 (>=60) mL/min Glucose 139 H D (75-99) mg/dL Lactic Acid (0.4-2.0) mmol/L Calcium 9.0 (8.4-10.1) mg/dL Total Bilirubin 0.4 (0.0-1.0) mg/dL AST 15 (15-37) U/L ALT 19 (12-78) U/L Alkaline Phosphatase 89 (46-116) U/L Creatine Kinase 69 (35-232) U/L Troponin I < 0.017 (0.00-0.06) ng/mL NT-Pro-B Natriuret Pep 265 (0-1000) pg/mL Total Protein 7.1 (6.4-8.2) g/dL Albumin 3.1 L (3.4-5.0) g/dL Influenza Type A RNA (NEGATIVE) Influenza Type B RNA (NEGATIVE) SARS-CoV-2 RNA (OSIEL) (NEGATIVE) 07/09/20 07/09/20 Range/Units 15:38 15:41 WBC (5.0-10.0) 10^3/uL RBC (4.50-6.00) 10^6/uL Hgb (14.0-18.0) g/dL Hct (40.0-54.0) % MCV (82.0-94.0) fL MCH (27.0-32.0) pg MCHC (33.0-38.0) g/dL RDW Coeff of Louis (11.0-15.0) % Plt Count (150-400) 10^3/uL Neut % (Auto) (35-85) % Lymph % (Auto) (10-55) % Marshall % (Auto) (0-16) % Eos % (Auto) (0-5) % Baso % (Auto) (0-3) % Neut # (Auto) (1.80-7.00) 10^3/uL Lymph # (Auto) (1.00-4.80) 10^3/uL Marshall # (Auto) (0.00-0.80) 10^3/uL Eos # (Auto) (0.00-0.45) 10^3/uL Baso # (Auto) 10^3/uL PT (9.7-12.3) SEC INR (0.92-1.18) APTT (23.2-32.3) SEC D-Dimer, Quantitative (0.00-0.50) Sodium (136-145) mEq/L Potassium (3.5-5.0) mEq/L Chloride (98-106) mEq/L Carbon Dioxide (21-32) mmol/L BUN (7-18) mg/dL Creatinine (0.7-1.3) mg/dL Est Cr Clr Drug Dosing mL/min Estimated GFR (MDRD) (>=60) mL/min Glucose (75-99) mg/dL Lactic Acid 1.3 (0.4-2.0) mmol/L Calcium (8.4-10.1) mg/dL Total Bilirubin (0.0-1.0) mg/dL AST (15-37) U/L ALT (12-78) U/L Alkaline Phosphatase (46-116) U/L Creatine Kinase (35-232) U/L Troponin I (0.00-0.06) ng/mL NT-Pro-B Natriuret Pep (0-1000) pg/mL Total Protein (6.4-8.2) g/dL Albumin (3.4-5.0) g/dL Influenza Type A RNA Negative (NEGATIVE) Influenza Type B RNA Negative (NEGATIVE) SARS-CoV-2 RNA (OSIEL) Negative (NEGATIVE) Meds: Medications Generic Name Dose Route Start Last Admin Trade Name Freq PRN Reason Stop Dose Admin Acetaminophen 650 mg 07/09/20 16:49 Acetaminophen 325 Mg Tab PO Q4H PRN Pain (Mild 1-3)/fever Albuterol/Ipratropium 3 ml 07/09/20 16:53 07/10/20 11:33 Albuterol/Ipratropium 3.0-0.5 Mg/3 Ml Neb Soln NEB 3 ml QID [facility] Administration Amlodipine Besylate 10 mg 07/10/20 08:00 07/10/20 07:53 Amlodipine 10 Mg Tab PO 10 mg DAILY [facility] Administration Carvedilol 6.25 mg 07/09/20 18:00 07/10/20 07:52 Carvedilol 6.25 Mg Tab PO 6.25 mg BIDMEALS [facility] Administration Clopidogrel Bisulfate 75 mg 07/10/20 08:00 07/10/20 07:52 Clopidogrel 75 Mg Tab PO 75 mg DAILY [facility] Administration Dextrose/Water 50 ml 07/09/20 16:54 50% Dextrose In Water 50 Ml Syringe IV ASDIRECTED PRN Hypoglycemia Gabapentin 100 mg 07/09/20 20:00 07/10/20 07:53 Gabapentin 100 Mg Cap PO 100 mg TID [facility] Administration Glucagon 1 mg 07/09/20 16:54 Glucagon,Human Recombinant 1 Mg Vial IM ASDIRECTED PRN Hypoglycemia Levofloxacin/Dextrose 500 mg/ 100 mls @ 100 mls/hr 07/09/20 18:00 07/09/20 18:17 Premix IV 100 mls/hr Q24H [facility] Administration Insulin Human Lispro 0 unit 07/09/20 17:30 07/10/20 07:48 Insulin Lispro 100 Units/Ml 3 Ml Vial SUBCUT 2 units BIDMEALS [facility] Administration Protocol Metformin HCl 500 mg 07/09/20 18:00 07/09/20 18:16 Metformin 500 Mg Tab PO 500 mg PCDINNER [facility] Administration Methylprednisolone Sodium Succinate 62.5 mg 07/09/20 20:00 07/10/20 07:46 Methylprednisolone Sodium Succinate 125 Mg/2 Ml Sdv IVPUSH 62.5 mg Q12H [facility] Administration Multivitamins/Minerals/Vitamin C 1 tab 07/10/20 08:00 07/10/20 07:53 Multivitamin Tab PO 1 tab DAILY [facility] Administration Nicotine 14 mg 07/10/20 09:45 07/10/20 10:07 Nicotine 14 Mg/24 Hr Patch TRDERM 14 mg DAILY [facility] Administration Nitroglycerin 0.4 mg 07/09/20 16:57 Nitroglycerin 0.4 Mg Tab.Sl SL ASDIRECTED PRN Chest Pain [place]-3/Dha/Epa/Fish 0 mg 07/10/20 08:00 Oil [[place]-3 Fish PO Oil 1,000 Mg Sfgl] * BIDMEALS [facility] *Pt Own Potassium Chloride 10 meq 07/10/20 08:00 07/10/20 07:52 Potassium Chloride 10 Meq Tab.Er PO 10 meq DAILY [facility] Administration Sertraline HCl 50 mg 07/10/20 08:00 07/10/20 07:53 Sertraline 100 Mg Tab PO 50 mg DAILY [facility] Administration Simvastatin 20 mg 07/09/20 20:00 07/09/20 20:52 Simvastatin 20 Mg Tab PO 20 mg BEDTIME [facility] Administration Sodium Chloride 10 ml 07/09/20 16:49 Sodium Chloride 0.9% 10 Ml Syringe FLUSH ASDIRECTED PRN Keep Vein Open Temazepam 15 mg 07/09/20 20:00 Temazepam 15 Mg Cap PO BEDTIME PRN Sleep Tiotropium [place] 18 mcg 07/10/20 16:00 Tiotropium Inhaler 18 Mcg Inhalation Powder Cap Kit Of 5 INH 1600 [facility] Discontinued Medications Generic Name Dose Route Start Last Admin Trade Name Freq PRN Reason Stop Dose Admin [place]-3/Dha/Epa/Fish 0 mg 07/10/20 08:00 Oil [[place]-3 Fish PO Oil 1,000 Mg Sfgl] * BIDMEALS [facility] *Pt Own Departure - Departure Time of Disposition: 16:49 Disposition: Admitted As Inpatient 68 Condition: Fair Clinical Impression: COPD with exacerbation - Discharge Information *PRESCRIPTION DRUG MONITORING PROGRAM REVIEWED*: Not Applicable *COPY OF PRESCRIPTION DRUG MONITORING REPORT IN PATIENT KALIA: Not Applicable Sepsis Event Note (ED) - Evaluation Sepsis Screening Result: No Definite Risk - Problem List & Annotations (1) COPD with exacerbation SNOMED Code(s): 697928013 Code(s): J44.1 - CHRONIC OBSTRUCTIVE PULMONARY DISEASE W (ACUTE) EXACERBATION Status: Acute Current Visit: Yes - Problem List Review Problem List Initiated/Reviewed/Updated: Yes - My Orders Last 24 Hours: My Active Orders 07/09/20 15:19 Chest 2V [CR] Stat - Assessment/Plan Last 24 Hours: My Active Orders 07/09/20 15:19 Chest 2V [CR] Stat Assessment:: COPD with acute exacerbation Plan: Labs all stable. INR supratherapeutic. Will hold Coumadin and check daily INR. Chest xray without acute consolidation. Does have bilateral atelectasis and scaring as well as hyperinflation. Patient's O2 sats remain low at 87% on RA. Patient O2 sats 92-93% on 4 L O2 via NC. Will admit to inpatient. Start IV solumedrol, antibiotics and nebulizers. Patient may need to be restarted on daily COPD inhalers. Discussed risk of repeat exacerbations if not appropriately treated. Also discussed that he may need to go home with home O2. Will reassess this once lung sounds have improved. Admit to inpatient. Patient transferred to floor in stable condition.
[2020-07-09 15:58] LABS: CHLORIDE,CL 105 mEq/L (98-106); SODIUM,NA 142 mEq/L (136-145)
[2020-07-09 16:13] LABS: CORONAVIRUS COVID-19 NAA NEGATIVE (NEGATIVE)
[2020-07-09 16:16] LABS: PTT,PARTIAL THROMBOPLSTIN TIME 42.5 SEC (23.2-32.3)
[2020-07-09] MEDS ORDERED: Acetaminophen 325 MG Tab PO PRN (16:49)
[2020-07-09] MEDS ORDERED: Sodium Chloride 0.9% 10 ML Syringe FLUSH PRN (16:49)
[2020-07-09] MEDS ORDERED: Glucagon,Human Recombinant 1 MG Vial IM PRN (16:54)
[2020-07-09] MEDS ORDERED: 50% Dextrose in Water 50 ML Syringe IV PRN (16:54)
[2020-07-09] MEDS ORDERED: Nitroglycerin 0.4 MG Tab.SL SL PRN (16:57)
[2020-07-09] MEDS: metFORMIN 500 MG Tab PO SCH (18:16)
[2020-07-09] MEDS: Carvedilol 6.25 MG Tab PO SCH (18:16)
[2020-07-09] MEDS: Insulin Lispro 100 Units/ML 3 ML Vial SUBCUT SCH (18:17)
[2020-07-09] MEDS: Levofloxacin/Dextrose 5%-Water 500 MG in Premix Bag 1 BAG IV SCH (18:17)
[2020-07-09] MEDS: Albuterol/Ipratropium 3.0-0.5 MG/3 ML Neb Soln NEB SCH ×2 (18:17→22:08)
[2020-07-09] MEDS ORDERED: Temazepam 15 MG Cap PO PRN (20:00)
[2020-07-09] MEDS: methylPREDNISolone Sodium Succinate 125 MG/2 ML SDV IVPUSH SCH (20:51)
[2020-07-09] MEDS: Simvastatin 20 MG Tab PO SCH (20:52)
[2020-07-09] MEDS: Gabapentin 100 MG Cap PO SCH (20:53)
[2020-07-10 07:22] LABS: CHLORIDE,CL 104 mEq/L (98-106); SODIUM,NA 140 mEq/L (136-145)
[2020-07-10] MEDS: Albuterol/Ipratropium 3.0-0.5 MG/3 ML Neb Soln NEB SCH ×4 (07:43→20:22)
[2020-07-10] MEDS: methylPREDNISolone Sodium Succinate 125 MG/2 ML SDV IVPUSH SCH ×2 (07:46→20:22)
[2020-07-10] MEDS: Insulin Lispro 100 Units/ML 3 ML Vial SUBCUT SCH ×2 (07:48→17:30)
[2020-07-10] MEDS: Potassium Chloride 10 MEQ Tab.ER PO SCH (07:52)
[2020-07-10] MEDS: Carvedilol 6.25 MG Tab PO SCH ×2 (07:52→17:29)
[2020-07-10] MEDS: Clopidogrel 75 MG Tab PO SCH (07:52)
[2020-07-10] MEDS: amLODIPine 10 MG Tab PO SCH (07:53)
[2020-07-10] MEDS: Gabapentin 100 MG Cap PO SCH ×3 (07:53→20:22)
[2020-07-10] MEDS: Multivitamin Tab PO SCH (07:53)
[2020-07-10] MEDS: Sertraline 100 MG Tab PO SCH (07:53)
[2020-07-10] MEDS ORDERED: OMEGA PO SCH ×2 (08:00)
[2020-07-10] MEDS ORDERED: DHA PO SCH ×2 (08:00)
[2020-07-10] MEDS ORDERED: FISH OIL PO SCH ×2 (08:00)
[2020-07-10] MEDS ORDERED: EPA PO SCH ×2 (08:00)
--- NOTE | 2020-07-10 09:11 | PCM.PN ---
- General Info Date of Service: 07/10/20 Admission Dx/Problem (Free Text): COPD exacerbation Subjective Update: Seth is a 80 yo male who was admitted to the hospital yesterday for COPD exacerbation. Patient had been experiencing shortness of breath and lightheadedness since last week Thursday. He had been checking his oxygen sats at home and was in the 80's. He admitted that sometimes they were above 85% and sometimes they were lower. Upon arrival he was 88%. 07/10/2020 Seth is in good spirits this morning. States he is feeling a little better. Does request a nicotine patch but admits he hasn't had a cigarette since last week Thursday. Admits to having a cough but has improved since admit. Denies any fevers or chills. Hasn't been up much, only to the bathroom without difficulty. Functional Status: Reports: Pain Controlled, Tolerating Diet, Ambulating - Review of Systems General: Denies: Fever HEENT: Reports: No Symptoms Pulmonary: Reports: Shortness of Breath, Cough, Wheezing. Denies: Pleuritic Chest Pain Cardiovascular: Denies: Chest Pain, Palpitations, Edema Gastrointestinal: Reports: No Symptoms Genitourinary: Reports: No Symptoms Musculoskeletal: Reports: No Symptoms Skin: Reports: No Symptoms Neurological: Reports: No Symptoms Psychiatric: Reports: No Symptoms - Patient Data Vitals - Most Recent: Last Vital Signs Temp 98.9 F 07/10/20 00:00 Pulse 72 07/10/20 07:52 Resp 20 07/10/20 00:00 BP 156/71 H 07/10/20 07:53 Pulse Ox 91 L 07/10/20 00:00 Weight - Most Recent: 220 lb Lab Results Last 24 Hours: Laboratory Results - last 24 hr 07/09/20 07/09/20 07/09/20 Range/Units 15:38 15:38 15:38 WBC 6.5 (5.0-10.0) 10^3/uL RBC 4.07 L (4.50-6.00) 10^6/uL Hgb 13.5 L (14.0-18.0) g/dL Hct 40.2 (40.0-54.0) % MCV 98.8 H (82.0-94.0) fL MCH 33.2 H (27.0-32.0) pg MCHC 33.6 (33.0-38.0) g/dL RDW Coeff of Louis 13.7 (11.0-15.0) % Plt Count 112 L (150-400) 10^3/uL Neut % (Auto) 65.1 (35-85) % Lymph % (Auto) 18.2 (10-55) % Angelina % (Auto) 13.3 (0-16) % Eos % (Auto) 2.9 (0-5) % Baso % (Auto) 0.5 (0-3) % Neut # (Auto) 4.21 (1.80-7.00) 10^3/uL Lymph # (Auto) 1.18 (1.00-4.80) 10^3/uL Angelina # (Auto) 0.86 H (0.00-0.80) 10^3/uL Eos # (Auto) 0.19 (0.00-0.45) 10^3/uL Baso # (Auto) 0.03 10^3/uL PT 37.0 H (9.7-12.3) SEC INR 3.69 H (0.92-1.18) APTT 42.5 H (23.2-32.3) SEC D-Dimer, Quantitative 0.69 H (0.00-0.50) Sodium 142 (136-145) mEq/L Potassium 3.9 (3.5-5.0) mEq/L Chloride 105 (98-106) mEq/L Carbon Dioxide 28 (21-32) mmol/L BUN 15 (7-18) mg/dL Creatinine 1.0 (0.7-1.3) mg/dL Est Cr Clr Drug Dosing 62.86 mL/min Estimated GFR (MDRD) > 60 (>=60) mL/min Glucose 139 H D (75-99) mg/dL Lactic Acid (0.4-2.0) mmol/L Calcium 9.0 (8.4-10.1) mg/dL Total Bilirubin 0.4 (0.0-1.0) mg/dL AST 15 (15-37) U/L ALT 19 (12-78) U/L Alkaline Phosphatase 89 (46-116) U/L Creatine Kinase 69 (35-232) U/L Troponin I < 0.017 (0.00-0.06) ng/mL C-Reactive Protein (0.2-0.8) mg/dL NT-Pro-B Natriuret Pep 265 (0-1000) pg/mL Total Protein 7.1 (6.4-8.2) g/dL Albumin 3.1 L (3.4-5.0) g/dL Influenza Type A RNA (NEGATIVE) Influenza Type B RNA (NEGATIVE) SARS-CoV-2 RNA (OSIEL) (NEGATIVE) 07/09/20 07/09/20 07/10/20 Range/Units 15:38 15:41 05:11 WBC 6.9 (5.0-10.0) 10^3/uL RBC 4.15 L (4.50-6.00) 10^6/uL Hgb 13.8 L (14.0-18.0) g/dL Hct 40.3 (40.0-54.0) % MCV 97.1 H (82.0-94.0) fL MCH 33.3 H (27.0-32.0) pg MCHC 34.2 (33.0-38.0) g/dL RDW Coeff of Louis 13.1 (11.0-15.0) % Plt Count 128 L (150-400) 10^3/uL Neut % (Auto) 85.9 H (35-85) % Lymph % (Auto) 11.4 (10-55) % Angelina % (Auto) 2.6 (0-16) % Eos % (Auto) 0 (0-5) % Baso % (Auto) 0.1 (0-3) % Neut # (Auto) 5.89 (1.80-7.00) 10^3/uL Lymph # (Auto) 0.78 L (1.00-4.80) 10^3/uL Angelina # (Auto) 0.18 (0.00-0.80) 10^3/uL Eos # (Auto) 0.00 (0.00-0.45) 10^3/uL Baso # (Auto) 0.01 10^3/uL PT (9.7-12.3) SEC INR (0.92-1.18) APTT (23.2-32.3) SEC D-Dimer, Quantitative (0.00-0.50) Sodium (136-145) mEq/L Potassium (3.5-5.0) mEq/L Chloride (98-106) mEq/L Carbon Dioxide (21-32) mmol/L BUN (7-18) mg/dL Creatinine (0.7-1.3) mg/dL Est Cr Clr Drug Dosing mL/min Estimated GFR (MDRD) (>=60) mL/min Glucose (75-99) mg/dL Lactic Acid 1.3 (0.4-2.0) mmol/L Calcium (8.4-10.1) mg/dL Total Bilirubin (0.0-1.0) mg/dL AST (15-37) U/L ALT (12-78) U/L Alkaline Phosphatase (46-116) U/L Creatine Kinase (35-232) U/L Troponin I (0.00-0.06) ng/mL C-Reactive Protein (0.2-0.8) mg/dL NT-Pro-B Natriuret Pep (0-1000) pg/mL Total Protein (6.4-8.2) g/dL Albumin (3.4-5.0) g/dL Influenza Type A RNA Negative (NEGATIVE) Influenza Type B RNA Negative (NEGATIVE) SARS-CoV-2 RNA (OSIEL) Negative (NEGATIVE) 07/10/20 Range/Units 07:10 WBC (5.0-10.0) 10^3/uL RBC (4.50-6.00) 10^6/uL Hgb (14.0-18.0) g/dL Hct (40.0-54.0) % MCV (82.0-94.0) fL MCH (27.0-32.0) pg MCHC (33.0-38.0) g/dL RDW Coeff of Louis (11.0-15.0) % Plt Count (150-400) 10^3/uL Neut % (Auto) (35-85) % Lymph % (Auto) (10-55) % Angelina % (Auto) (0-16) % Eos % (Auto) (0-5) % Baso % (Auto) (0-3) % Neut # (Auto) (1.80-7.00) 10^3/uL Lymph # (Auto) (1.00-4.80) 10^3/uL Angelina # (Auto) (0.00-0.80) 10^3/uL Eos # (Auto) (0.00-0.45) 10^3/uL Baso # (Auto) 10^3/uL PT (9.7-12.3) SEC INR (0.92-1.18) APTT (23.2-32.3) SEC D-Dimer, Quantitative (0.00-0.50) Sodium 140 (136-145) mEq/L Potassium 4.6 (3.5-5.0) mEq/L Chloride 104 (98-106) mEq/L Carbon Dioxide 27 (21-32) mmol/L BUN 13 (7-18) mg/dL Creatinine 0.9 (0.7-1.3) mg/dL Est Cr Clr Drug Dosing 69.85 mL/min Estimated GFR (MDRD) > 60 (>=60) mL/min Glucose 190 H D (75-99) mg/dL Lactic Acid (0.4-2.0) mmol/L Calcium 8.9 (8.4-10.1) mg/dL Total Bilirubin (0.0-1.0) mg/dL AST (15-37) U/L ALT (12-78) U/L Alkaline Phosphatase (46-116) U/L Creatine Kinase (35-232) U/L Troponin I (0.00-0.06) ng/mL C-Reactive Protein 4.8 H (0.2-0.8) mg/dL NT-Pro-B Natriuret Pep (0-1000) pg/mL Total Protein (6.4-8.2) g/dL Albumin (3.4-5.0) g/dL Influenza Type A RNA (NEGATIVE) Influenza Type B RNA (NEGATIVE) SARS-CoV-2 RNA (OSIEL) (NEGATIVE) Med Orders - Current: Current Medications Acetaminophen (Acetaminophen 325 Mg Tab) 650 mg PO Q4H PRN PRN Reason: Pain (Mild 1-3)/fever Albuterol/Ipratropium (Albuterol/Ipratropium 3.0-0.5 Mg/3 Ml Neb Soln) 3 ml NEB QID OLGA Last Admin: 07/10/20 07:43 Dose: 3 ml Documented by: Amlodipine Besylate (Amlodipine 10 Mg Tab) 10 mg PO DAILY [facility] Last Admin: 07/10/20 07:53 Dose: 10 mg Documented by: Carvedilol (Carvedilol 6.25 Mg Tab) 6.25 mg PO BIDMEALS [facility] Last Admin: 07/10/20 07:52 Dose: 6.25 mg Documented by: Clopidogrel Bisulfate (Clopidogrel 75 Mg Tab) 75 mg PO DAILY [facility] Last Admin: 07/10/20 07:52 Dose: 75 mg Documented by: Dextrose/Water (50% Dextrose In Water 50 Ml Syringe) 50 ml IV ASDIRECTED PRN PRN Reason: Hypoglycemia Gabapentin (Gabapentin 100 Mg Cap) 100 mg PO TID [facility] Last Admin: 07/10/20 07:53 Dose: 100 mg Documented by: Glucagon (Glucagon,Human Recombinant 1 Mg Vial) 1 mg IM ASDIRECTED PRN PRN Reason: Hypoglycemia Levofloxacin/Dextrose 500 mg/ (Premix) 100 mls @ 100 mls/hr IV Q24H [facility] Last Admin: 07/09/20 18:17 Dose: 100 mls/hr Documented by: Insulin Human Lispro (Insulin Lispro 100 Units/Ml 3 Ml Vial) 0 unit SUBCUT BIDMEALS [facility]; Protocol Last Admin: 07/10/20 07:48 Dose: 2 units Documented by: Metformin HCl (Metformin 500 Mg Tab) 500 mg PO PCDINNER [facility] Last Admin: 07/09/20 18:16 Dose: 500 mg Documented by: Methylprednisolone Sodium Succinate (Methylprednisolone Sodium Succinate 125 Mg/2 Ml Sdv) 62.5 mg IVPUSH Q12H [facility] Last Admin: 07/10/20 07:46 Dose: 62.5 mg Documented by: Multivitamins/Minerals/Vitamin C (Multivitamin Tab) 1 tab PO DAILY [facility] Last Admin: 07/10/20 07:53 Dose: 1 tab Documented by: Nitroglycerin (Nitroglycerin 0.4 Mg Tab.Sl) 0.4 mg SL ASDIRECTED PRN PRN Reason: Chest Pain Mallie-3/Dha/Epa/Fish Oil [Mallie-3 Fish Oil 1,000 Mg Sfgl] * *Pt Own 0 mg PO BIDMEALS [facility] Potassium Chloride (Potassium Chloride 10 Meq Tab.Er) 10 meq PO DAILY [facility] Last Admin: 07/10/20 07:52 Dose: 10 meq Documented by: Sertraline HCl (Sertraline 100 Mg Tab) 50 mg PO DAILY [facility] Last Admin: 07/10/20 07:53 Dose: 50 mg Documented by: Simvastatin (Simvastatin 20 Mg Tab) 20 mg PO BEDTIME [facility] Last Admin: 07/09/20 20:52 Dose: 20 mg Documented by: Sodium Chloride (Sodium Chloride 0.9% 10 Ml Syringe) 10 ml FLUSH ASDIRECTED PRN PRN Reason: Keep Vein Open Temazepam (Temazepam 15 Mg Cap) 15 mg PO BEDTIME PRN PRN Reason: Sleep Discontinued Medications Mallie-3/Dha/Epa/Fish Oil [Mallie-3 Fish Oil 1,000 Mg Sfgl] * *Pt Own 0 mg PO BIDMEALS [facility] - Exam General: Alert, Oriented, Cooperative, No Acute Distress Lungs: Decreased Breath Sounds (bases), Rhonchi, Wheezing Cardiovascular: Regular Rate, Regular Rhythm, No Murmurs GI/Abdominal Exam: Normal Bowel Sounds, Soft, Non-Tender, No Distention Extremities: Normal Inspection, No Pedal Edema Skin: Warm, Dry, Intact Neurological: No New Focal Deficit Psy/Mental Status: Alert, Normal Affect, Normal Mood - Patient Data Lab Results Last 24 hrs: Laboratory Results - last 24 hr 07/09/20 07/09/20 07/09/20 Range/Units 15:38 15:38 15:38 WBC 6.5 (5.0-10.0) 10^3/uL RBC 4.07 L (4.50-6.00) 10^6/uL Hgb 13.5 L (14.0-18.0) g/dL Hct 40.2 (40.0-54.0) % MCV 98.8 H (82.0-94.0) fL MCH 33.2 H (27.0-32.0) pg MCHC 33.6 (33.0-38.0) g/dL RDW Coeff of Louis 13.7 (11.0-15.0) % Plt Count 112 L (150-400) 10^3/uL Neut % (Auto) 65.1 (35-85) % Lymph % (Auto) 18.2 (10-55) % Angelina % (Auto) 13.3 (0-16) % Eos % (Auto) 2.9 (0-5) % Baso % (Auto) 0.5 (0-3) % Neut # (Auto) 4.21 (1.80-7.00) 10^3/uL Lymph # (Auto) 1.18 (1.00-4.80) 10^3/uL Angelina # (Auto) 0.86 H (0.00-0.80) 10^3/uL Eos # (Auto) 0.19 (0.00-0.45) 10^3/uL Baso # (Auto) 0.03 10^3/uL PT 37.0 H (9.7-12.3) SEC INR 3.69 H (0.92-1.18) APTT 42.5 H (23.2-32.3) SEC D-Dimer, Quantitative 0.69 H (0.00-0.50) Sodium 142 (136-145) mEq/L Potassium 3.9 (3.5-5.0) mEq/L Chloride 105 (98-106) mEq/L Carbon Dioxide 28 (21-32) mmol/L BUN 15 (7-18) mg/dL Creatinine 1.0 (0.7-1.3) mg/dL Est Cr Clr Drug Dosing 62.86 mL/min Estimated GFR (MDRD) > 60 (>=60) mL/min Glucose 139 H D (75-99) mg/dL Lactic Acid (0.4-2.0) mmol/L Calcium 9.0 (8.4-10.1) mg/dL Total Bilirubin 0.4 (0.0-1.0) mg/dL AST 15 (15-37) U/L ALT 19 (12-78) U/L Alkaline Phosphatase 89 (46-116) U/L Creatine Kinase 69 (35-232) U/L Troponin I < 0.017 (0.00-0.06) ng/mL C-Reactive Protein (0.2-0.8) mg/dL NT-Pro-B Natriuret Pep 265 (0-1000) pg/mL Total Protein 7.1 (6.4-8.2) g/dL Albumin 3.1 L (3.4-5.0) g/dL Influenza Type A RNA (NEGATIVE) Influenza Type B RNA (NEGATIVE) SARS-CoV-2 RNA (OSIEL) (NEGATIVE) 07/09/20 07/09/20 07/10/20 Range/Units 15:38 15:41 05:11 WBC 6.9 (5.0-10.0) 10^3/uL RBC 4.15 L (4.50-6.00) 10^6/uL Hgb 13.8 L (14.0-18.0) g/dL Hct 40.3 (40.0-54.0) % MCV 97.1 H (82.0-94.0) fL MCH 33.3 H (27.0-32.0) pg MCHC 34.2 (33.0-38.0) g/dL RDW Coeff of Louis 13.1 (11.0-15.0) % Plt Count 128 L (150-400) 10^3/uL Neut % (Auto) 85.9 H (35-85) % Lymph % (Auto) 11.4 (10-55) % Angelina % (Auto) 2.6 (0-16) % Eos % (Auto) 0 (0-5) % Baso % (Auto) 0.1 (0-3) % Neut # (Auto) 5.89 (1.80-7.00) 10^3/uL Lymph # (Auto) 0.78 L (1.00-4.80) 10^3/uL Angelina # (Auto) 0.18 (0.00-0.80) 10^3/uL Eos # (Auto) 0.00 (0.00-0.45) 10^3/uL Baso # (Auto) 0.01 10^3/uL PT (9.7-12.3) SEC INR (0.92-1.18) APTT (23.2-32.3) SEC D-Dimer, Quantitative (0.00-0.50) Sodium (136-145) mEq/L Potassium (3.5-5.0) mEq/L Chloride (98-106) mEq/L Carbon Dioxide (21-32) mmol/L BUN (7-18) mg/dL Creatinine (0.7-1.3) mg/dL Est Cr Clr Drug Dosing mL/min Estimated GFR (MDRD) (>=60) mL/min Glucose (75-99) mg/dL Lactic Acid 1.3 (0.4-2.0) mmol/L Calcium (8.4-10.1) mg/dL Total Bilirubin (0.0-1.0) mg/dL AST (15-37) U/L ALT (12-78) U/L Alkaline Phosphatase (46-116) U/L Creatine Kinase (35-232) U/L Troponin I (0.00-0.06) ng/mL C-Reactive Protein (0.2-0.8) mg/dL NT-Pro-B Natriuret Pep (0-1000) pg/mL Total Protein (6.4-8.2) g/dL Albumin (3.4-5.0) g/dL Influenza Type A RNA Negative (NEGATIVE) Influenza Type B RNA Negative (NEGATIVE) SARS-CoV-2 RNA (OSIEL) Negative (NEGATIVE) 07/10/20 Range/Units 07:10 WBC (5.0-10.0) 10^3/uL RBC (4.50-6.00) 10^6/uL Hgb (14.0-18.0) g/dL Hct (40.0-54.0) % MCV (82.0-94.0) fL MCH (27.0-32.0) pg MCHC (33.0-38.0) g/dL RDW Coeff of Louis (11.0-15.0) % Plt Count (150-400) 10^3/uL Neut % (Auto) (35-85) % Lymph % (Auto) (10-55) % Angelina % (Auto) (0-16) % Eos % (Auto) (0-5) % Baso % (Auto) (0-3) % Neut # (Auto) (1.80-7.00) 10^3/uL Lymph # (Auto) (1.00-4.80) 10^3/uL Angelina # (Auto) (0.00-0.80) 10^3/uL Eos # (Auto) (0.00-0.45) 10^3/uL Baso # (Auto) 10^3/uL PT (9.7-12.3) SEC INR (0.92-1.18) APTT (23.2-32.3) SEC D-Dimer, Quantitative (0.00-0.50) Sodium 140 (136-145) mEq/L Potassium 4.6 (3.5-5.0) mEq/L Chloride 104 (98-106) mEq/L Carbon Dioxide 27 (21-32) mmol/L BUN 13 (7-18) mg/dL Creatinine 0.9 (0.7-1.3) mg/dL Est Cr Clr Drug Dosing 69.85 mL/min Estimated GFR (MDRD) > 60 (>=60) mL/min Glucose 190 H D (75-99) mg/dL Lactic Acid (0.4-2.0) mmol/L Calcium 8.9 (8.4-10.1) mg/dL Total Bilirubin (0.0-1.0) mg/dL AST (15-37) U/L ALT (12-78) U/L Alkaline Phosphatase (46-116) U/L Creatine Kinase (35-232) U/L Troponin I (0.00-0.06) ng/mL C-Reactive Protein 4.8 H (0.2-0.8) mg/dL NT-Pro-B Natriuret Pep (0-1000) pg/mL Total Protein (6.4-8.2) g/dL Albumin (3.4-5.0) g/dL Influenza Type A RNA (NEGATIVE) Influenza Type B RNA (NEGATIVE) SARS-CoV-2 RNA (OSIEL) (NEGATIVE) Result Diagrams: 07/10/20 05:11 07/10/20 07:10 Sepsis Event Note - Evaluation Sepsis Screening Result: No Definite Risk - Focused Exam Vital Signs: Vital Signs Temp Pulse Pulse Resp BP BP Pulse Ox 07/10/20 07:53 156/71 H 07/10/20 07:52 72 156/71 H 07/10/20 00:00 98.9 F 76 20 157/66 H 91 L - Problem List & Annotations (1) COPD with exacerbation SNOMED Code(s): 357006089 Code(s): J44.1 - CHRONIC OBSTRUCTIVE PULMONARY DISEASE W (ACUTE) EXACERBATION Status: Acute Current Visit: Yes - Problem List Review Problem List Initiated/Reviewed/Updated: Yes - Plan Plan:: 07/10/2020 Laboratory work is stable compared to yesterday. CRP is slightly elevated, normal WBC. Will initiate incentive spirometry today. Will start Spiriva HandiHaler. Continue IV antibiotics. Reviewed chest x-ray which did show no consolidative process. Will continue IV steroids today as well. INR to be drawn today as slightly elevated yesterday.
[2020-07-10] MEDS: Nicotine 14 MG/24 Hr Patch TRDERM SCH (10:07)
[2020-07-10] MEDS ORDERED: Tiotropium Inhaler 18 MCG Inhalation Powder Cap Kit of 5 INH SCH (16:00)
[2020-07-10] MEDS: metFORMIN 500 MG Tab PO SCH (17:30)
[2020-07-10] MEDS: Levofloxacin/Dextrose 5%-Water 500 MG in Premix Bag 1 BAG IV SCH (17:33)
[2020-07-10] MEDS: Simvastatin 20 MG Tab PO SCH (20:22)
[2020-07-11 07:17] LABS: CHLORIDE,CL 104 mEq/L (98-106); SODIUM,NA 139 mEq/L (136-145)
[2020-07-11] MEDS: methylPREDNISolone Sodium Succinate 125 MG/2 ML SDV IVPUSH SCH ×2 (07:28→19:40)
[2020-07-11] MEDS: Albuterol/Ipratropium 3.0-0.5 MG/3 ML Neb Soln NEB SCH ×4 (07:31→19:37)
[2020-07-11] MEDS: Nicotine 14 MG/24 Hr Patch TRDERM SCH (07:31)
[2020-07-11] MEDS: Potassium Chloride 10 MEQ Tab.ER PO SCH (07:35)
[2020-07-11] MEDS: amLODIPine 10 MG Tab PO SCH (07:35)
[2020-07-11] MEDS: Sertraline 100 MG Tab PO SCH (07:35)
[2020-07-11] MEDS: Gabapentin 100 MG Cap PO SCH ×3 (07:35→19:38)
[2020-07-11] MEDS: Multivitamin Tab PO SCH (07:36)
[2020-07-11] MEDS: Carvedilol 6.25 MG Tab PO SCH ×2 (07:36→17:33)
[2020-07-11] MEDS: Clopidogrel 75 MG Tab PO SCH (07:36)
[2020-07-11] MEDS: Insulin Lispro 100 Units/ML 3 ML Vial SUBCUT SCH ×2 (07:41→17:34)
--- NOTE | 2020-07-11 09:15 | PCM.PN ---
- General Info Date of Service: 07/11/20 Admission Dx/Problem (Free Text): COPD exacerbation Subjective Update: Seth is a 80 yo male who was admitted to the hospital yesterday for COPD exacerbation. Patient had been experiencing shortness of breath and lightheadedness since last week Thursday. He had been checking his oxygen sats at home and was in the 80's. He admitted that sometimes they were above 85% and sometimes they were lower. Upon arrival he was 88%. 07/10/2020 Seth is in good spirits this morning. States he is feeling a little better. Does request a nicotine patch but admits he hasn't had a cigarette since last week Thursday. Admits to having a cough but has improved since admit. Denies any fevers or chills. Hasn't been up much, only to the bathroom without difficulty. 07/11/2020 Seth is up in the recliner eating breakfast upon my arrival this morning. States he feels about the same as yesterday. Nursing staff were able to decrease supplemental oxygen to 3L/min this morning. Nursing staff state lungs do sound better. He hasn't been out walking the hallway since admit. He denies any fevers. No increased shortness of breath. Functional Status: Reports: Tolerating Diet, Ambulating, Urinating, Incentive Spirometry. Denies: New Symptoms - Review of Systems General: Reports: Fatigue. Denies: Fever, Weakness HEENT: Reports: No Symptoms Pulmonary: Reports: Shortness of Breath, Cough Cardiovascular: Reports: No Symptoms Gastrointestinal: Reports: Constipation, Flatus. Denies: Abdominal Pain, Decreased Appetite, Diarrhea, Nausea, Vomiting Musculoskeletal: Reports: No Symptoms Neurological: Reports: No Symptoms - Patient Data Vitals - Most Recent: Last Vital Signs Temp 97.8 F 07/11/20 04:00 Pulse 74 07/11/20 07:36 Resp 18 07/11/20 04:00 BP 172/76 H 07/11/20 07:36 Pulse Ox 93 L 07/11/20 04:00 Weight - Most Recent: 220 lb Lab Results Last 24 Hours: Laboratory Results - last 24 hr 07/10/20 07/10/20 07/11/20 Range/Units 09:35 17:14 06:50 WBC 13.2 H (5.0-10.0) 10^3/uL RBC 4.29 L (4.50-6.00) 10^6/uL Hgb 14.1 (14.0-18.0) g/dL Hct 41.5 (40.0-54.0) % MCV 96.7 H (82.0-94.0) fL MCH 32.9 H (27.0-32.0) pg MCHC 34.0 (33.0-38.0) g/dL RDW Coeff of Louis 13.0 (11.0-15.0) % Plt Count 149 L (150-400) 10^3/uL Neut % (Auto) 86.1 H (35-85) % Lymph % (Auto) 8.6 L (10-55) % [place] % (Auto) 5.3 (0-16) % Eos % (Auto) 0 (0-5) % Baso % (Auto) 0 (0-3) % Neut # (Auto) 11.37 H (1.80-7.00) 10^3/uL Lymph # (Auto) 1.14 (1.00-4.80) 10^3/uL [place] # (Auto) 0.70 (0.00-0.80) 10^3/uL Eos # (Auto) 0.00 (0.00-0.45) 10^3/uL Baso # (Auto) 0.00 10^3/uL PT 33.9 H (9.7-12.3) SEC INR 3.37 H (0.92-1.18) Sodium (136-145) mEq/L Potassium (3.5-5.0) mEq/L Chloride (98-106) mEq/L Carbon Dioxide (21-32) mmol/L BUN (7-18) mg/dL Creatinine (0.7-1.3) mg/dL Est Cr Clr Drug Dosing mL/min Estimated GFR (MDRD) (>=60) mL/min Glucose (75-99) mg/dL POC Glucose 223 H (75-105) mg/dl Calcium (8.4-10.1) mg/dL C-Reactive Protein (0.2-0.8) mg/dL 07/11/20 07/11/20 Range/Units 06:50 06:50 WBC (5.0-10.0) 10^3/uL RBC (4.50-6.00) 10^6/uL Hgb (14.0-18.0) g/dL Hct (40.0-54.0) % MCV (82.0-94.0) fL MCH (27.0-32.0) pg MCHC (33.0-38.0) g/dL RDW Coeff of Louis (11.0-15.0) % Plt Count (150-400) 10^3/uL Neut % (Auto) (35-85) % Lymph % (Auto) (10-55) % [place] % (Auto) (0-16) % Eos % (Auto) (0-5) % Baso % (Auto) (0-3) % Neut # (Auto) (1.80-7.00) 10^3/uL Lymph # (Auto) (1.00-4.80) 10^3/uL [place] # (Auto) (0.00-0.80) 10^3/uL Eos # (Auto) (0.00-0.45) 10^3/uL Baso # (Auto) 10^3/uL PT 23.4 H (9.7-12.3) SEC INR 2.27 H (0.92-1.18) Sodium 139 (136-145) mEq/L Potassium 4.2 (3.5-5.0) mEq/L Chloride 104 (98-106) mEq/L Carbon Dioxide 26 (21-32) mmol/L BUN 13 (7-18) mg/dL Creatinine 0.9 (0.7-1.3) mg/dL Est Cr Clr Drug Dosing 69.85 mL/min Estimated GFR (MDRD) > 60 (>=60) mL/min Glucose 205 H (75-99) mg/dL POC Glucose (75-105) mg/dl Calcium 9.1 (8.4-10.1) mg/dL C-Reactive Protein 2.2 H (0.2-0.8) mg/dL Germán Results Last 24 Hours: Microbiology 07/09/20 16:54 Gram Stain - Final Sputum - Expectorated Sputum Culture - Final Med Orders - Current: Current Medications Acetaminophen (Acetaminophen 325 Mg Tab) 650 mg PO Q4H PRN PRN Reason: Pain (Mild 1-3)/fever Albuterol/Ipratropium (Albuterol/Ipratropium 3.0-0.5 Mg/3 Ml Neb Soln) 3 ml NEB QID [facility] Last Admin: 07/11/20 07:31 Dose: 3 ml Documented by: Amlodipine Besylate (Amlodipine 10 Mg Tab) 10 mg PO DAILY [facility] Last Admin: 07/11/20 07:35 Dose: 10 mg Documented by: Carvedilol (Carvedilol 6.25 Mg Tab) 6.25 mg PO BIDMEALS [facility] Last Admin: 07/11/20 07:36 Dose: 6.25 mg Documented by: Clopidogrel Bisulfate (Clopidogrel 75 Mg Tab) 75 mg PO DAILY [facility] Last Admin: 07/11/20 07:36 Dose: 75 mg Documented by: Dextrose/Water (50% Dextrose In Water 50 Ml Syringe) 50 ml IV ASDIRECTED PRN PRN Reason: Hypoglycemia Gabapentin (Gabapentin 100 Mg Cap) 100 mg PO TID [facility] Last Admin: 07/11/20 07:35 Dose: 100 mg Documented by: Glucagon (Glucagon,Human Recombinant 1 Mg Vial) 1 mg IM ASDIRECTED PRN PRN Reason: Hypoglycemia Levofloxacin/Dextrose 500 mg/ (Premix) 100 mls @ 100 mls/hr IV Q24H [facility] Last Admin: 07/10/20 17:33 Dose: 100 mls/hr Documented by: Insulin Human Lispro (Insulin Lispro 100 Units/Ml 3 Ml Vial) 0 unit SUBCUT BIDMEALS [facility]; Protocol Last Admin: 07/11/20 07:41 Dose: Not Given Documented by: Metformin HCl (Metformin 500 Mg Tab) 500 mg PO PCDINNER [facility] Last Admin: 07/10/20 17:30 Dose: 500 mg Documented by: Methylprednisolone Sodium Succinate (Methylprednisolone Sodium Succinate 125 Mg/2 Ml Sdv) 62.5 mg IVPUSH Q12H [facility] Last Admin: 07/11/20 07:28 Dose: 62.5 mg Documented by: Multivitamins/Minerals/Vitamin C (Multivitamin Tab) 1 tab PO DAILY [facility] Last Admin: 07/11/20 07:36 Dose: 1 tab Documented by: Nicotine (Nicotine 14 Mg/24 Hr Patch) 14 mg TRDERM DAILY [facility] Last Admin: 07/11/20 07:31 Dose: 14 mg Documented by: Nitroglycerin (Nitroglycerin 0.4 Mg Tab.Sl) 0.4 mg SL ASDIRECTED PRN PRN Reason: Chest Pain Howard-3/Dha/Epa/Fish Oil [Howard-3 Fish Oil 1,000 Mg Sfgl] * *Pt Own 0 mg PO BIDMEALS [facility] Potassium Chloride (Potassium Chloride 10 Meq Tab.Er) 10 meq PO DAILY [facility] Last Admin: 07/11/20 07:35 Dose: 10 meq Documented by: Sertraline HCl (Sertraline 100 Mg Tab) 50 mg PO DAILY [facility] Last Admin: 07/11/20 07:35 Dose: 50 mg Documented by: Simvastatin (Simvastatin 20 Mg Tab) 20 mg PO BEDTIME [facility] Last Admin: 07/10/20 20:22 Dose: 20 mg Documented by: Sodium Chloride (Sodium Chloride 0.9% 10 Ml Syringe) 10 ml FLUSH ASDIRECTED PRN PRN Reason: Keep Vein Open Temazepam (Temazepam 15 Mg Cap) 15 mg PO BEDTIME PRN PRN Reason: Sleep Warfarin Sodium (Warfarin 5 Mg Tab) 10 mg PO MOFR [facility] Warfarin Sodium (Warfarin 5 Mg Tab) 7.5 mg PO SUTUWETHSA [facility] Discontinued Medications Howard-3/Dha/Epa/Fish Oil [Howard-3 Fish Oil 1,000 Mg Sfgl] * *Pt Own 0 mg PO BIDMEALS [facility] Tiotropium Turon (Tiotropium Inhaler 18 Mcg Inhalation Powder Cap Kit Of 5) 18 mcg INH 1600 [facility] - Exam Quality Assessment: Supplemental Oxygen General: Alert, Oriented, Cooperative, No Acute Distress Lungs: Normal Respiratory Effort, Decreased Breath Sounds. No: Rhonchi Cardiovascular: Regular Rate, Regular Rhythm, No Murmurs GI/Abdominal Exam: Normal Bowel Sounds, Soft, Non-Tender, No Organomegaly, No Distention, No Mass Extremities: Normal Inspection, Non-Tender Peripheral Pulses: 1+: Dorsalis Pedis (L), Dorsalis Pedis (R) Skin: Warm, Dry, Intact Psy/Mental Status: Alert, Normal Affect, Normal Mood - Patient Data Lab Results Last 24 hrs: Laboratory Results - last 24 hr 07/10/20 07/10/20 07/11/20 Range/Units 09:35 17:14 06:50 WBC 13.2 H (5.0-10.0) 10^3/uL RBC 4.29 L (4.50-6.00) 10^6/uL Hgb 14.1 (14.0-18.0) g/dL Hct 41.5 (40.0-54.0) % MCV 96.7 H (82.0-94.0) fL MCH 32.9 H (27.0-32.0) pg MCHC 34.0 (33.0-38.0) g/dL RDW Coeff of Louis 13.0 (11.0-15.0) % Plt Count 149 L (150-400) 10^3/uL Neut % (Auto) 86.1 H (35-85) % Lymph % (Auto) 8.6 L (10-55) % [place] % (Auto) 5.3 (0-16) % Eos % (Auto) 0 (0-5) % Baso % (Auto) 0 (0-3) % Neut # (Auto) 11.37 H (1.80-7.00) 10^3/uL Lymph # (Auto) 1.14 (1.00-4.80) 10^3/uL [place] # (Auto) 0.70 (0.00-0.80) 10^3/uL Eos # (Auto) 0.00 (0.00-0.45) 10^3/uL Baso # (Auto) 0.00 10^3/uL PT 33.9 H (9.7-12.3) SEC INR 3.37 H (0.92-1.18) Sodium (136-145) mEq/L Potassium (3.5-5.0) mEq/L Chloride (98-106) mEq/L Carbon Dioxide (21-32) mmol/L BUN (7-18) mg/dL Creatinine (0.7-1.3) mg/dL Est Cr Clr Drug Dosing mL/min Estimated GFR (MDRD) (>=60) mL/min Glucose (75-99) mg/dL POC Glucose 223 H (75-105) mg/dl Calcium (8.4-10.1) mg/dL C-Reactive Protein (0.2-0.8) mg/dL 07/11/20 07/11/20 Range/Units 06:50 06:50 WBC (5.0-10.0) 10^3/uL RBC (4.50-6.00) 10^6/uL Hgb (14.0-18.0) g/dL Hct (40.0-54.0) % MCV (82.0-94.0) fL MCH (27.0-32.0) pg MCHC (33.0-38.0) g/dL RDW Coeff of Louis (11.0-15.0) % Plt Count (150-400) 10^3/uL Neut % (Auto) (35-85) % Lymph % (Auto) (10-55) % [place] % (Auto) (0-16) % Eos % (Auto) (0-5) % Baso % (Auto) (0-3) % Neut # (Auto) (1.80-7.00) 10^3/uL Lymph # (Auto) (1.00-4.80) 10^3/uL [place] # (Auto) (0.00-0.80) 10^3/uL Eos # (Auto) (0.00-0.45) 10^3/uL Baso # (Auto) 10^3/uL PT 23.4 H (9.7-12.3) SEC INR 2.27 H (0.92-1.18) Sodium 139 (136-145) mEq/L Potassium 4.2 (3.5-5.0) mEq/L Chloride 104 (98-106) mEq/L Carbon Dioxide 26 (21-32) mmol/L BUN 13 (7-18) mg/dL Creatinine 0.9 (0.7-1.3) mg/dL Est Cr Clr Drug Dosing 69.85 mL/min Estimated GFR (MDRD) > 60 (>=60) mL/min Glucose 205 H (75-99) mg/dL POC Glucose (75-105) mg/dl Calcium 9.1 (8.4-10.1) mg/dL C-Reactive Protein 2.2 H (0.2-0.8) mg/dL Result Diagrams: 07/11/20 06:50 07/11/20 06:50 Germán Results Last 24 hrs: Microbiology 07/09/20 16:54 Gram Stain - Final Sputum - Expectorated Sputum Culture - Final Sepsis Event Note - Evaluation Sepsis Screening Result: No Definite Risk - Focused Exam Vital Signs: Vital Signs Temp Pulse Pulse Resp BP BP Pulse Ox 07/11/20 07:36 74 172/76 H 07/11/20 07:35 172/76 H 07/11/20 04:00 97.8 F 87 18 152/61 H 93 L 07/11/20 00:00 97.8 F 72 18 148/68 H 92 L - Problem List & Annotations (1) COPD with exacerbation SNOMED Code(s): 385157578 Code(s): J44.1 - CHRONIC OBSTRUCTIVE PULMONARY DISEASE W (ACUTE) EXACERBATION Status: Acute Current Visit: Yes - Problem List Review Problem List Initiated/Reviewed/Updated: Yes - My Orders Last 24 Hours: My Active Orders 07/10/20 09:45 Nicotine [Habitrol] 14 mg TRDERM DAILY 07/11/20 08:00 Warfarin 7.5 mg PO SUTUWETHSA 07/13/20 07:59 Warfarin [Coumadin] 10 mg PO MOFR - Plan Plan:: 07/10/2020 Laboratory work is stable compared to yesterday. CRP is slightly elevated, normal WBC. Will initiate incentive spirometry today. Continue IV antibiotics. Reviewed chest x-ray which did show no consolidative process. Will continue IV steroids today as well. INR to be drawn today as slightly elevated yesterday. 07/11/2020 Laboratory work did show elevated WBC, which is likely secondary to IV steroids. Seth has been using incentive spirometry regularly. Will continue DuoNeb treatments. INR is therapeutic today and will restart Coumadin. Oxygen saturation on 3 Liters is currently 91%. Discussed concerns with Seth and will likely need home oxygen on discharge. Will plan for possible discharge tomorrow.
[2020-07-11] MEDS: Warfarin 5 MG Tab PO SCH (11:36)
[2020-07-11] MEDS: metFORMIN 500 MG Tab PO SCH (17:33)
[2020-07-11] MEDS: Levofloxacin/Dextrose 5%-Water 500 MG in Premix Bag 1 BAG IV SCH (18:27)
[2020-07-11] MEDS: Simvastatin 20 MG Tab PO SCH (19:39)
[2020-07-12 07:48] LABS: CHLORIDE,CL 103 mEq/L (98-106); SODIUM,NA 137 mEq/L (136-145)
[2020-07-12] MEDS: methylPREDNISolone Sodium Succinate 125 MG/2 ML SDV IVPUSH SCH (07:48)
[2020-07-12 07:49] VITALS: BP 160/79
[2020-07-12] MEDS: Multivitamin Tab PO SCH (07:49)
[2020-07-12] MEDS: Clopidogrel 75 MG Tab PO SCH (07:49)
[2020-07-12] MEDS: Potassium Chloride 10 MEQ Tab.ER PO SCH (07:49)
[2020-07-12] MEDS: Sertraline 100 MG Tab PO SCH (07:49)
[2020-07-12] MEDS: Carvedilol 6.25 MG Tab PO SCH (07:49)
[2020-07-12] MEDS: Gabapentin 100 MG Cap PO SCH (07:49)
[2020-07-12] MEDS: amLODIPine 10 MG Tab PO SCH (07:49)
[2020-07-12 07:50] VITALS: PULSE 69
[2020-07-12] MEDS: Insulin Lispro 100 Units/ML 3 ML Vial SUBCUT SCH (07:50)
[2020-07-12] MEDS: Nicotine 14 MG/24 Hr Patch TRDERM SCH ×2 (07:50→07:58)
[2020-07-12] MEDS: Albuterol/Ipratropium 3.0-0.5 MG/3 ML Neb Soln NEB SCH ×2 (07:50→12:10)
[2020-07-12] MEDS ORDERED: Docusate Sodium 100 MG Cap PO PRN (09:00)
[2020-07-12] MEDS: Warfarin 5 MG Tab PO SCH (12:10)
[2020-07-13] MEDS ORDERED: Warfarin 5 MG Tab PO SCH (12:00)
--- NOTE | 2020-07-16 00:22 | PCM.DCSUM1 ---
Discharge Summary - Hospital Course HPI Initial Comments: Seth is a 80 yo male with PMH htn, hyperlipidemia, COPD, type 2 DM, CAD who was admitted to the hospital d/t COPD exacerbation. Patient was experiencing shortness of breath and cough. Symptoms had been present for over a week prior to presenting to the ED. Admitted to worsening cough and increasing shortness of breath. Cough was productive with thick sputum. Patient did have O2 sat monitor at home, as his oxygen was borderline low when he was hospitalized last month for carotid endarterectomy. He was discharged home on oxygen which he had refused to use. Prior to coming in to the ED, oxygen sats were mid 80's. Patient had been on COPD inhalers in the past but declined using d/t cost. Patient's last cigarette was last week Thursday. Diagnosis: Stroke: No - Discharge Data Discharge Date: 07/12/20 Discharge Disposition: Home, Self-Care 01 Condition: Fair - Referral to Home Health Primary Care Physician: Zain Maradiaga MD - Discharge Diagnosis/Problem(s) (1) COPD with exacerbation SNOMED Code(s): 029252579 ICD Code: J44.1 - CHRONIC OBSTRUCTIVE PULMONARY DISEASE W (ACUTE) EXACERBATION Status: Acute - Patient Instructions Diet: Usual Diet as Tolerated Activity: As Tolerated - Discharge Plan *PRESCRIPTION DRUG MONITORING PROGRAM REVIEWED*: Not Applicable *COPY OF PRESCRIPTION DRUG MONITORING REPORT IN PATIENT KALIA: Not Applicable Prescriptions/Med Rec: Albuterol/Ipratropium [DuoNeb 3.0-0.5 MG/3 ML] 3 ml NEB QID #120 neb levoFLOXacin [Levaquin] 500 mg PO DAILY #5 tab predniSONE [Prednisone] 40 mg PO DAILY #6 tablet Home Medications: Home Meds Clopidogrel [Plavix] 75 mg PO DAILY 06/26/14 [History] Sertraline [Zoloft] 50 mg PO DAILY 06/26/14 [History] Simvastatin [Zocor] 20 mg PO DAILY 06/26/14 [History] amLODIPine [Norvasc] 10 mg PO DAILY 06/26/14 [History] carvediloL [Coreg] 6.25 mg PO BID 06/26/14 [History] metFORMIN [Glucophage] 500 mg PO DAILY 06/26/14 [History] Cholecalciferol (Vitamin D3) [Vitamin D3] 1,000 unit PO DAILY 11/20/17 [History] Gabapentin [Neurontin] 100 mg PO TID 11/20/17 [History] Multivitamin [Multivitamins] 1 each PO DAILY 11/20/17 [History] Nitroglycerin 0.4 mg SL ASDIRECTED PRN 11/20/17 [History] Warfarin [Coumadin] 10 mg PO MOWEFR 06/20/18 [History] Fish Oil/[place]-3 Fatty Acids [Fish Oil 1,000 MG] 1,000 mg PO DAILY 07/09/20 [History] Flaxseed Oil 1,200 mg PO DAILY 07/09/20 [History] Potassium Chloride [Klor-Con 10] 10 mg PO DAILY 07/09/20 [History] Warfarin [Coumadin] 7.5 mg PO SUTUTHSA 07/09/20 [History] Albuterol/Ipratropium [DuoNeb 3.0-0.5 MG/3 ML] 3 ml NEB QID #120 neb 07/12/20 [Rx] levoFLOXacin [Levaquin] 500 mg PO DAILY #5 tab 07/12/20 [Rx] predniSONE [Prednisone] 40 mg PO DAILY #6 tablet 07/12/20 [Rx] Oxygen Therapy Mode: Nasal Cannula Oxygen Flow Rate (L/min): 2 Maintain SpO2% greater than: 90 Patient Handouts: Chronic Obstructive Pulmonary Disease Exacerbation Forms: ED Department Discharge Referrals: Zain Maradiaga MD [Primary Care Provider] - (2 weeks) - Discharge Summary/Plan Comment DC Time >30 min.: Yes Discharge Summary/Plan Comment: Seth is doing well since admission. Home oxygen to be used continuously at 2 Liters per nasal canula to keep sats greataer than 90. Will start oral antibiotics and three days of Prednisone. Duo Nebs ordered and use QID. No fevers on discharge. Patient is good spirits. Follow up with Dr. Maradiaga in 2 weeks, prior if any concerns. - General Info Date of Service: 07/12/20 Admission Dx/Problem (Free Text: COPD exacerbation Subjective Update: Seth is a 80 yo male who was admitted to the hospital yesterday for COPD exacerbation. Patient had been experiencing shortness of breath and lightheadedness since last week Thursday. He had been checking his oxygen sats at home and was in the 80's. He admitted that sometimes they were above 85% and sometimes they were lower. Upon arrival he was 88%. 07/10/2020 Seth is in good spirits this morning. States he is feeling a little better. Does request a nicotine patch but admits he hasn't had a cigarette since last week Thursday. Admits to having a cough but has improved since admit. Denies any fevers or chills. Hasn't been up much, only to the bathroom without difficulty. 07/11/2020 Seth is up in the recliner eating breakfast upon my arrival this morning. States he feels about the same as yesterday. Nursing staff were able to decrease supplemental oxygen to 3L/min this morning. Nursing staff state lungs do sound better. He hasn't been out walking the hallway since admit. He denies any fevers. No increased shortness of breath. 07/12/2020 Seth admits to feeling a lot better ad feels he is ready to go home. Continues to use supplemental oxygen which he had gotten today for home use as well. Denies any concerns today. - Review of Systems General: Reports: No Symptoms HEENT: Reports: No Symptoms Pulmonary: Reports: Cough. Denies: Shortness of Breath, Sputum Cardiovascular: Reports: No Symptoms Gastrointestinal: Reports: No Symptoms Genitourinary: Reports: No Symptoms Musculoskeletal: Reports: No Symptoms Skin: Reports: No Symptoms - Patient Data Vitals - Most Recent: Last Vital Signs Temp 97.8 F 07/12/20 07:48 Pulse 69 07/12/20 07:49 Resp 18 07/12/20 07:48 BP 160/79 H 07/12/20 07:49 Pulse Ox 93 L 07/12/20 07:48 Weight - Most Recent: 220 lb Med Orders - Current: Current Medications Discontinued Medications Acetaminophen (Acetaminophen 325 Mg Tab) 650 mg PO Q4H PRN PRN Reason: Pain (Mild 1-3)/fever Albuterol/Ipratropium (Albuterol/Ipratropium 3.0-0.5 Mg/3 Ml Neb Soln) 3 ml NEB QID [facility] Last Admin: 07/12/20 12:10 Dose: 3 ml Documented by: Amlodipine Besylate (Amlodipine 10 Mg Tab) 10 mg PO DAILY [facility] Last Admin: 07/12/20 07:49 Dose: 10 mg Documented by: Carvedilol (Carvedilol 6.25 Mg Tab) 6.25 mg PO BIDMEALS [facility] Last Admin: 07/12/20 07:49 Dose: 6.25 mg Documented by: Clopidogrel Bisulfate (Clopidogrel 75 Mg Tab) 75 mg PO DAILY [facility] Last Admin: 07/12/20 07:49 Dose: 75 mg Documented by: Dextrose/Water (50% Dextrose In Water 50 Ml Syringe) 50 ml IV ASDIRECTED PRN PRN Reason: Hypoglycemia Docusate Sodium (Docusate Sodium 100 Mg Cap) 100 mg PO DAILY PRN PRN Reason: Constipation Gabapentin (Gabapentin 100 Mg Cap) 100 mg PO TID [facility] Last Admin: 07/12/20 07:49 Dose: 100 mg Documented by: Glucagon (Glucagon,Human Recombinant 1 Mg Vial) 1 mg IM ASDIRECTED PRN PRN Reason: Hypoglycemia Levofloxacin/Dextrose 500 mg/ (Premix) 100 mls @ 100 mls/hr IV Q24H [facility] Last Admin: 07/11/20 18:27 Dose: 100 mls/hr Documented by: Insulin Human Lispro (Insulin Lispro 100 Units/Ml 3 Ml Vial) [facility] Protocol Last Admin: 07/12/20 07:50 Dose: Not Given Documented by: Metformin HCl (Metformin 500 Mg Tab) 500 mg PO PCDINNER [facility] Last Admin: 07/11/20 17:33 Dose: 500 mg Documented by: Methylprednisolone Sodium Succinate (Methylprednisolone Sodium Succinate 125 Mg/2 Ml Sdv) 62.5 mg IVPUSH Q12H [facility] Last Admin: 07/12/20 07:48 Dose: 62.5 mg Documented by: Multivitamins/Minerals/Vitamin C (Multivitamin Tab) 1 tab PO DAILY [facility] Last Admin: 07/12/20 07:49 Dose: 1 tab Documented by: Nicotine (Nicotine 14 Mg/24 Hr Patch) 14 mg TRDERM DAILY [facility] Last Admin: 07/12/20 07:58 Dose: Not Given Documented by: Nitroglycerin (Nitroglycerin 0.4 Mg Tab.Sl) 0.4 mg SL ASDIRECTED PRN PRN Reason: Chest Pain Florence-3/Dha/Epa/Fish Oil [[place]-3 Fish Oil 1,000 Mg Sfgl] * *Pt Own 0 mg PO BIDMEALS [facility] [place]-3/Dha/Epa/Fish Oil [[place]-3 Fish Oil 1,000 Mg Sfgl] * *Pt Own 0 mg PO BIDMEALS [facility] Potassium Chloride (Potassium Chloride 10 Meq Tab.Er) 10 meq PO DAILY [facility] Last Admin: 07/12/20 07:49 Dose: 10 meq Documented by: Sertraline HCl (Sertraline 100 Mg Tab) 50 mg PO DAILY [facility] Last Admin: 07/12/20 07:49 Dose: 50 mg Documented by: Simvastatin (Simvastatin 20 Mg Tab) 20 mg PO BEDTIME [facility] Last Admin: 07/11/20 19:39 Dose: 20 mg Documented by: Sodium Chloride (Sodium Chloride 0.9% 10 Ml Syringe) 10 ml FLUSH ASDIRECTED PRN PRN Reason: Keep Vein Open Temazepam (Temazepam 15 Mg Cap) 15 mg PO BEDTIME PRN PRN Reason: Sleep Tiotropium [place] (Tiotropium Inhaler 18 Mcg Inhalation Powder Cap Kit Of 5) 18 mcg INH 1600 [facility] Warfarin Sodium (Warfarin 5 Mg Tab) 10 mg PO MOFR [facility] Warfarin Sodium (Warfarin 5 Mg Tab) 7.5 mg PO SUTUWETHSA [facility] Last Admin: 07/12/20 12:10 Dose: 7.5 mg Documented by: - Exam General: Reports: Alert, Oriented Neck: Reports: Supple Lungs: Reports: Decreased Breath Sounds, Wheezing Cardiovascular: Reports: Irregular Rhythm GI/Abdominal Exam: Normal Bowel Sounds, Soft, Non-Tender Skin: Reports: Warm, Dry, Intact Neurological: Reports: No New Focal Deficit Psy/Mental Status: Reports: Alert, Normal Affect, Normal Mood
== END 2020-07-12 12:45 | disposition home or self-care (01) | DRG 191 ==
LOC: CC.ED 14:59 → CC.MS 16:49 → UNDOADMIN 16:53 → CC.MS 16:53
PROVIDERS: ADMIT Nurse Practitioner Family; ATTEND Family Medicine
DX: J44.1 Chronic obstructive pulmonary disease with (acute) exacerbation (principal); J98.11 Atelectasis; E78.00 Pure hypercholesterolemia, unspecified; I10 Essential (primary) hypertension; F32.9 Major depressive disorder, single episode, unspecified; E11.9 Type 2 diabetes mellitus without complications; M54.9 Dorsalgia, unspecified; G89.29 Other chronic pain; Z96.649 Presence of unspecified artificial hip joint; Z20.822 Contact with and (suspected) exposure to COVID-19; E78.5 Hyperlipidemia, unspecified; I25.119 Atherosclerotic heart disease of native coronary artery with unspecified angina pectoris; Z79.01 Long term (current) use of anticoagulants; Z79.899 Other long term (current) drug therapy; F17.210 Nicotine dependence, cigarettes, uncomplicated; I25.2 Old myocardial infarction; Z95.0 Presence of cardiac pacemaker; Z95.5 Presence of coronary angioplasty implant and graft; Z87.891 Personal history of nicotine dependence; Z79.84 Long term (current) use of oral hypoglycemic drugs; Z79.02 Long term (current) use of antithrombotics/antiplatelets; Z95.828 Presence of other vascular implants and grafts
CPT/HCPCS: 0240U; 36415; 71046; 80048; 80053; 82550; 82962; 83605; 83880; 84484; 85025; 85379; 85610; 85730; 86140; 87070; 87205; 93005; 93010; 94640; 99285-25; A9270-GY; J1815-GY; J1956; J2930; J7620-GY

== ENCOUNTER → 2020-08-17 | Day surgery (SDC) | payer MEDICARE, OTHER ==
[~2020-08-17] MED LIST: Lactated Ringers 1,000 ML IV SCH; Propofol 200 MG/20 ML SDV ONE
[2020-08-17 11:12] VITALS: BP 158/69; PULSE 72
--- NOTE | 2020-08-17 14:38 | OR ---
DATE OF OPERATION: 08/17/2020 PREOPERATIVE DIAGNOSIS: PROCTALGIA. POSTOPERATIVE DIAGNOSIS: PROCTALGIA. SURGEON: Zain Maradiaga MD PROCEDURE: FLEXIBLE SIGMOIDOSCOPY TO ABOUT 35 CM WITH NO BIOPSIES. ANESTHESIA: MAC. COMPLICATIONS: None. SPECIMEN: None. FINDINGS: 1. Flexible sigmoidoscopy to approximately 30 cm to 35 cm. 2. Perianal hemorrhoid disease with internal and external. RECOMMENDATIONS: Medical followup. INDICATIONS: The patient has been having some rectal pain for about a month. He has had a colonoscopy about 5 years ago, which was normal. He was not responding to external Anusol cream. We elected to proceed with a flexible sigmoidoscopy. DESCRIPTION OF PROCEDURE: The patient was prepped and draped, placed in the left lateral decubitus position. A lubricated Olympus colonoscope was inserted and advanced to about 35 cm where we ran in to too much stool to proceed. The distal sigmoid and rectosigmoid area appeared benign. Rectal vault had a lot of stool. We were able to irrigate most of this. I could find no rectal masses, polyps, ulceration, or otherwise. Retroflexion was accomplished, and there was some perianal hemorrhoid disease but no other obvious signs of fissuring, tears, or mass. Upon withdrawal, the anal region as well did not show any obvious fissures. Air was suctioned. Scope removed without complication. ELSY/ELFEGO /[id number]
== END ==
LOC: CC.SDS 06:57
PROVIDERS: ATTEND Family Medicine
DX: K64.8 Other hemorrhoids (principal); K64.4 Residual hemorrhoidal skin tags; I25.10 Atherosclerotic heart disease of native coronary artery without angina pectoris; J44.9 Chronic obstructive pulmonary disease, unspecified; E11.40 Type 2 diabetes mellitus with diabetic neuropathy, unspecified; I25.2 Old myocardial infarction; F17.210 Nicotine dependence, cigarettes, uncomplicated; Z79.899 Other long term (current) drug therapy; Z98.890 Other specified postprocedural states
CPT/HCPCS: 00811; 36415; 45330; 85610; J2704; J7120

== ENCOUNTER → 2021-03-22 | Day surgery (SDC) | payer MEDICARE, OTHER ==
[2021-03-22 13:22] VITALS: BP 165/80; PULSE 65
--- NOTE | 2021-03-23 13:04 | OR ---
DATE OF OPERATION: 03/22/2021 PREOPERATIVE DIAGNOSIS: PERSISTENT DIARRHEA. POSTOPERATIVE DIAGNOSIS: PERSISTENT DIARRHEA. SURGEON: Zain Maradiaga MD PROCEDURE: DIAGNOSTIC COLONOSCOPY WITH RANDOM BIOPSIES X4, SNARE POLYPECTOMY X1, AND FORCEPS POLYP REMOVAL X2. ANESTHESIA: MAC. COMPLICATIONS: None. SPECIMEN: 1. Random colon biopsies from cecum to rectum x4. 2. Large villous adenoma, proximal ascending colon. 3. Two small sessile polyps, proximal ascending colon. FINDINGS: 1. Full length diagnostic colonoscopy. 2. Rebolledo diverticulosis, mild to moderate. 3. No obvious signs of colitis. 4. Three polyps, ascending colon, as described above. RECOMMENDATIONS: Await for biopsy reports looking for possible lymphocytic colitis for his diarrhea. He can decide on further surveillance scope for his polyps pending pathology reports. INDICATIONS: Mr. Ashraf is a 81-year-old who has been having persistent diarrhea. We elected to proceed with diagnostic endoscopy. DESCRIPTION OF PROCEDURE: The patient was prepped and draped, placed in the left lateral decubitus position. A lubricated Olympus colonoscope was inserted and with relative ease advanced to the cecum. We were able to directly visualize the ileocecal valve and appendiceal orifice. The bowel prep was marginal. There was a lot of liquid stool throughout the colon. It was very difficult to visualize the cecum in its entirety after even multiple irrigations. Upon withdrawal, the patient did have 1 large villous lesion of approximately a centimeter just outside the cecal pouch in the proximal ascending colon, removed it with a snare and suctioned into polyp trap #1. There were 2 small sessile polyps right next to it. Those were removed with forceps and also put with that polyp in the trap. Throughout the length of the colon, I could find no signs of any obvious colitis. We did do random biopsies at the ascending, transverse, sigmoid, and rectal areas, but no gross colitis seen. The patient does have rebolledo diverticular disease, most severe in the sigmoid as expected, but present throughout the entire colon. I found no other polyps, masses, ulceration, or bleeding sites. No vascular abnormalities or signs of colitis. Rectal vault was benign. Retroflexion showed no anal lesions other than a severe hemorrhoid disease. Air was suctioned, and the scope was removed without complication. ELSY/ELFEGO /[id number]
== END ==
LOC: CC.SDS 06:51
PROVIDERS: ATTEND Family Medicine
DX: D12.0 Benign neoplasm of cecum (principal); D12.3 Benign neoplasm of transverse colon; K57.30 Diverticulosis of large intestine without perforation or abscess without bleeding; K64.9 Unspecified hemorrhoids; I25.10 Atherosclerotic heart disease of native coronary artery without angina pectoris; I48.91 Unspecified atrial fibrillation; J44.1 Chronic obstructive pulmonary disease with (acute) exacerbation; E11.40 Type 2 diabetes mellitus with diabetic neuropathy, unspecified; F32.A Depression, unspecified; M10.9 Gout, unspecified; I10 Essential (primary) hypertension; E78.00 Pure hypercholesterolemia, unspecified; G47.30 Sleep apnea, unspecified; I25.2 Old myocardial infarction; F17.210 Nicotine dependence, cigarettes, uncomplicated; Z79.899 Other long term (current) drug therapy; Z79.84 Long term (current) use of oral hypoglycemic drugs; Z98.890 Other specified postprocedural states
CPT/HCPCS: 36415; 45380; 45385; 85610; J2704; J7120

== ENCOUNTER 2021-05-15 21:41 | Inpatient (IN) | payer MEDICARE, OTHER ==
[2021-05-15] MEDS ORDERED: Aspirin 81 MG Tab.Chew PO ONE (21:45)
[2021-05-15] MEDS ORDERED: Sodium Chloride 0.9% 10 ML Syringe FLUSH PRN (21:49)
[2021-05-15] MEDS ORDERED: Nitroglycerin 0.4 MG Tab.SL SL ONE (22:09)
[2021-05-15 22:14] LABS: CHLORIDE,CL 103 mEq/L (98-106); SODIUM,NA 142 mEq/L (136-145)
[2021-05-15 22:15] LABS: PTT,PARTIAL THROMBOPLSTIN TIME 34.5 SEC (23.2-32.3)
[2021-05-15] MEDS ORDERED: methylPREDNISolone Sodium Succinate 125 MG/2 ML SDV IVPUSH ONE (22:30)
[2021-05-15] MEDS ORDERED: Albuterol/Ipratropium 3.0-0.5 MG/3 ML Neb Soln NEB ONE (22:42)
[2021-05-15] MEDS: Doxycycline 100 MG Tab PO SCH (22:56)
[2021-05-15] MEDS ORDERED: Sodium Chloride 0.9% 1,000 ML IV SCH (23:00)
[2021-05-16] MEDS ORDERED: Nitroglycerin 0.4 MG Tab.SL SL PRN (00:58)
[2021-05-16] MEDS ORDERED: amLODIPine 10 MG Tab PO SCH (08:00)
[2021-05-16] MEDS ORDERED: Multivitamin Tab PO SCH (08:00)
[2021-05-16] MEDS ORDERED: Warfarin 2.5 MG Tab PO SCH (08:00)
[2021-05-16] MEDS ORDERED: Simvastatin 20 MG Tab PO SCH (08:00)
[2021-05-16] MEDS ORDERED: Potassium Chloride 10 MEQ Tab.ER PO SCH (08:00)
[2021-05-16] MEDS ORDERED: Carvedilol 12.5 MG Tab PO SCH ×2 (08:00→17:30)
[2021-05-16] MEDS ORDERED: metFORMIN 500 MG Tab PO SCH ×2 (08:00→17:30)
[2021-05-16] MEDS ORDERED: Clopidogrel 75 MG Tab PO SCH (08:00)
[2021-05-16] MEDS ORDERED: Non-Formulary Medication 1 Each (Fish Oil/Omega-3 Fatty Acids [Fish Oil 1,000 Mg] 1 GM Cap PO SCH (08:00)
[2021-05-16] MEDS ORDERED: Cholecalciferol (Vitamin D3) 25 MCG Tab PO SCH (08:00)
[2021-05-16] MEDS: Doxycycline 100 MG Tab PO SCH (08:06)
[2021-05-16] MEDS: Albuterol/Ipratropium 3.0-0.5 MG/3 ML Neb Soln NEB SCH ×2 (08:06→12:59)
[2021-05-16] MEDS: Gabapentin 100 MG Cap PO SCH ×2 (08:06→13:37)
[2021-05-16 08:14] LABS: CHLORIDE,CL 103 mEq/L (98-106); SODIUM,NA 140 mEq/L (136-145)
[2021-05-16] MEDS ORDERED: Nicotine 21 MG/24 Hr Patch TRDERM SCH (08:45)
[2021-05-16 13:57] VITALS: BP 168/80; PULSE 88
[2021-05-17] MEDS ORDERED: Non-Formulary Medication 1 Each (Metformin Hcl [Metformin Hcl Er] 500 MG Tab.Er.24h) PO SCH (08:00)
== END 2021-05-16 15:28 | disposition home or self-care (01) | DRG 192 ==
LOC: CC.ED 21:41 → CC.MS 22:54 → UNDOADMIN 23:00
PROVIDERS: ADMIT Nurse Practitioner Family; ATTEND Family Medicine
DX: J44.1 Chronic obstructive pulmonary disease with (acute) exacerbation (principal); R07.9 Chest pain, unspecified; E78.00 Pure hypercholesterolemia, unspecified; I10 Essential (primary) hypertension; M54.9 Dorsalgia, unspecified; G89.29 Other chronic pain; F32.A Depression, unspecified; Z96.649 Presence of unspecified artificial hip joint; Z20.822 Contact with and (suspected) exposure to COVID-19; E11.9 Type 2 diabetes mellitus without complications; Z95.1 Presence of aortocoronary bypass graft; Z79.899 Other long term (current) drug therapy; Z79.02 Long term (current) use of antithrombotics/antiplatelets; Z79.01 Long term (current) use of anticoagulants; Z79.84 Long term (current) use of oral hypoglycemic drugs; I25.2 Old myocardial infarction; Z95.0 Presence of cardiac pacemaker; Z95.5 Presence of coronary angioplasty implant and graft
CPT/HCPCS: 36415; 71045; 80053; 82947; 84484; 85025; 85610; 85730; 93005; 94640; 96374; 99285-25; A9270-GY; J2930; J7030; J7620-GY; U0002

== ENCOUNTER 2023-09-23 20:14 | Emergency (ER) | payer MEDICARE, OTHER ==
[2023-09-23] MEDS: HYDROmorphone 1 MG/ML Syringe IVPUSH ONE ×3 (20:35→23:44)
[2023-09-23] MEDS: Sodium Chloride 0.9% 1,000 ML IV ONE (20:35)
[2023-09-23] MEDS: Ondansetron 4 MG/2 ML SDV IVPUSH PRN (20:35)
[2023-09-23 20:36] LABS: BASOPHILS ABSOLUTE AUTO 0.07 10^3/uL (0.00-0.50); EOSINOPHILS ABSOLUTE AUTO 0.16 10^3/uL (0.00-1.50); EOSINOPHILS PERCENT AUTO 2.2 % (0-6); HEMATOCRIT 52.1 % (42.0-52.0); HEMOGLOBIN 17.7 g/dL (14.0-18.0); IMMATURE GRAN ABSOLUTE AUTO 0.02 10^3/uL (0.00-0.49); IMMATURE GRAN PERCENT AUTO 0.3 % (0.0-4.9); LYMPHOCYTES ABSOLUTE AUTO 1.14 10^3/uL (0.60-5.00); LYMPHOCYTES PERCENT AUTO 15.5 % (24-44); MEAN CORPUSCULAR VOLUME 105.9 fL (83.0-97.0); MONOCYTES ABSOLUTE AUTO 1.06 10^3/uL (0.00-1.50); MONOCYTES PERCENT AUTO 14.4 % (0-10); NEUTROPHILS ABSOLUTE AUTO 4.89 x10^3/uL (1.80-8.00); NEUTROPHILS PERCENT AUTO 66.6 % (41-71); PLATELET COUNT,PLT 117 10^3/uL (150-400); RED BLOOD CELL COUNT 4.92 x10^6/uL (4.50-6.00); WHITE BLOOD CELL COUNT,WBC 7.3 10^3/uL (4.0-11.0)
[2023-09-23 20:51] LABS: INR 2.18 (0.92-1.18)
[2023-09-23 20:52] LABS: ALANINE AMINOTRANSFERASE,ALT 22 U/L (12-78); ALBUMIN 3.6 g/dL (3.4-5.0); ALKALINE PHOSPHATASE 124 U/L (46-116); ASPARTATE AMNIOTRANSFERASE,AST 25 U/L (15-37); BILIRUBIN TOTAL 0.7 mg/dL (0.0-1.0); BLOOD UREA NITROGEN,BUN 17 mg/dL (7-18); C-REACTIVE PROTEIN 0.56 mg/dL (<=0.50); CALCIUM 9.5 mg/dL (8.4-10.1); CARBON DIOXIDE,CO2 29 mmol/L (21-32); CHLORIDE,CL 103 mEq/L (98-106); CREATININE 1.3 mg/dL (0.7-1.3); ESTIMATED GFR 55 mL/min (>=60); ETHANOL BLOOD MEDICAL < 3 mg/dL (0-3); GLUCOSE RANDOM 107 mg/dL (75-99); LIPASE 53 U/L (16-77); MAGNESIUM 1.8 mg/dL (1.8-2.4); PROTEIN TOTAL,TP 8.1 g/dL (6.4-8.2); SODIUM,NA 143 mEq/L (136-145)
[2023-09-23] MEDS: Iopamidol 755 Mg/ML 100 ML Bottle IVPUSH ONE (20:59)
[2023-09-23 21:10] LABS: APPEARANCE,URINE CLEAR (CLEAR); BILIRUBIN,URINE NEGATIVE (NEGATIVE); COLOR,URINE YELLOW (YELLOW); GLUCOSE,URINE NEGATIVE (NEGATIVE); KETONES,URINE NEGATIVE (NEGATIVE); LEUKOCYTE ESTERASE,URINE NEGATIVE (NEGATIVE); NITRITE,URINE NEGATIVE (NEGATIVE); OCCULT BLOOD,URINE TRACE-INTACT (NEGATIVE); PROTEIN,URINE NEGATIVE (NEGATIVE)
[2023-09-23 21:11] LABS: RBC,URINE NOT SEEN /HPF (0-5); WBC,URINE NOT SEEN /HPF (0-5)
[2023-09-23] MEDS: Piperacillin/Tazobactam 4.5 GM in Sodium Chloride 0.9% 100 ML IV ONE (23:14)
[2023-09-23] MEDS: Sodium Chloride 0.9% 1,000 ML IV SCH (23:45)
[2023-09-24 00:43] VITALS: BP 108/58; PULSE 60
[2023-09-24] MEDS: HYDROmorphone 0.5 MG/0.5 ML Syringe IVPUSH ONE (00:59)
[2023-09-24] MEDS: Albuterol/Ipratropium 3.0-0.5 MG/3 ML Neb Soln NEB ONE (01:00)
== END 2023-09-24 01:50 ==
LOC: CC.ED 20:14
DX: R10.84 Generalized abdominal pain (principal); I10 Essential (primary) hypertension; E78.00 Pure hypercholesterolemia, unspecified; I25.2 Old myocardial infarction; Z95.0 Presence of cardiac pacemaker; E11.9 Type 2 diabetes mellitus without complications; Z95.1 Presence of aortocoronary bypass graft; Z79.899 Other long term (current) drug therapy; Z79.01 Long term (current) use of anticoagulants
CPT/HCPCS: 36415; 71045; 74177; 80053; 80307; 81001; 83605; 83690; 83735; 84484; 85025; 85610; 86140; 93005; 94640; 96361; 96365; 96375; 96376; 99285-25; J1170; J2405; J2543; J3490; J7030; J7620-GY; Q9967